=== PATIENT | female | born 1975 | race Caucasian/White ===

== ENCOUNTER 2018-05-04 14:49 | Emergency (ER) | payer BC ==
[2018-05-04] MEDS ORDERED: HYDROCODONE/APAP 5/325 MG TAB ONE ×2 (15:27→22:14)
[2018-05-04 15:52] LABS: Absolute Monocytes 0.7 K/uL (0.1-1.3); Basophils % 0.3 % (0-1.3); Eosinophils % 0.1 % (0-4.4); Hematocrit 34.7 % (36.0-45.0); Lymphocytes % 6.4 % (15.3-44.8); MCH 27.8 pg (27.0-35.0); MCV 86.4 fL (80-100); MPV 8.5 fL (7.6-11.3); Monocytes % 4.5 % (3.3-12.3); RBC Red Blood Cell Count 4.02 M/uL (3.86-4.86)
--- NOTE | 2018-05-04 15:53 | RAD REPORT ---
EXAM DESCRIPTION: RAD - Foot Right 3 View - 05/04/2018 3:37 pm CLINICAL HISTORY: Chronic wound, foot pain, pain along the lateral and plantar aspect fifth MTP join t region COMPARISON: Right foot November 2017 FINDINGS: No fracture, dislocation or periosteal reaction. No acute or destructive bone process. Sof t tissue swelling is present along the plantar and lateral margins of the foot near the fifth MTP maya nt. No air or foreign body in the soft tissues. IMPRESSION: Soft tissue wound in the region of the fifth MTP joint. No air or foreign body. No bone destructive process to suspect osteomyelitis. Osteomyelitis can exist prior to bone destructi on.
[2018-05-04 16:19] LABS: Blood Morphology Comment NOT SEEN (NOT SEEN); Platelet Estimate ADEQ; Urine White Blood Cell Casts OK
[2018-05-04 16:23] LABS: ALT/SGPT 15 U/L (12-78); AST/SGOT 15 U/L (15-37); Albumin 2.6 g/dL (3.4-5.0); Alkaline Phosphatase 80 U/L (45-117); BUN Blood Urea Nitrogen 23 mg/dL (7-18); Bilirubin Direct < 0.1 mg/dL (0-0.2); Bilirubin Total 0.4 mg/dL (0.2-1.0); Glucose Level 125 mg/dL (74-106); Potassium 4.3 mmol/L (3.5-5.1); Protein, Total 7.8 g/dL (6.4-8.2); Sodium Level 138 mmol/L (136-145)
[2018-05-04 16:37] LABS: Bicarbonate 12 mmol/L (21-32)
[2018-05-04] MEDS ORDERED: NA CHLORIDE 0.9% 1,000 ML ONE ×3 (16:57→18:08)
[2018-05-04 17:26] LABS: Urine Blood NEGATIVE (NEG); Urine Glucose 2+ (NEG); Urine Protein 1+ (NEG)
[2018-05-04 20:11] LABS: Potassium 3.8 mmol/L (3.5-5.1)
[2018-05-04 21:41] LABS: Potassium 4.4 mmol/L (3.5-5.1)
--- NOTE | 2018-05-04 22:26 | EDPHYS ---
Physician Documentation [facility] Name: June Hebert Age: 43 yrs Sex: Female : 1975 Arrival Date: 05/04/2018 Time: 14:52 Bed 19 Private MD: Guillermo Jordan ED Physician Shadi Spencer HPI: 05/04 16:00 This 43 yrs old Female presents to ER via Ambulatory with complaints of Feet pm1 Swelling. 16:00 Patient with plantar wound to right foot for 1 year and wound to lateral aspect of pm1 right foot since November 2017. Patient sees Dr. Velarde for wound care management. For the past two days patient has noted some increased swelling and pain to right foot. No fevers or discharge. Patient has appointment to follow up with Dr. Velarde next . 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 aj Historical: - Allergies: 15:01 No Known Allergies; aj - Home Meds: 15:01 fluoxetine 40 mg Oral cap 1 cap once daily [Active]; ramipril 10 mg Oral cap 1 cap once aj daily [Active]; metformin 1,000 mg Oral TG24 2 tabs once daily [Active]; Microgestin FE /20 (28) 1 mg-20 mcg (21)/75 mg (7) oral tab 1 tab once daily [Active]; Invokana 100 mg oral tab 1 tab once daily [Active]; Trulicity 1.5 mg/0.5 mL subcutaneous pnij 0.5 mL once wkly [Active]; atorvastatin 10 mg oral tab 1 tab once daily [Active]; - PMHx: 15:01 Diabetes - NIDDM; Hyperlipidemia; aj - PSHx: 15:01 Cholecystectomy; aj - Immunization history:: Adult Immunizations up to date. - Social history:: Smoking status: Patient/guardian denies using tobacco. - Ebola Screening: : Patient negative for fever greater than or equal to 101.5 degrees Fahrenheit, and additional compatible Ebola Virus Disease symptoms Patient denies exposure to infectious person Patient denies travel to an Ebola-affected area in the 21 days before illness onset No symptoms or risks identified at this time. ROS: 16:00 Constitutional: Negative for fever, chills, and weight loss, Eyes: Negative for injury, pm1 pain, redness, and discharge, ENT: Negative for injury, pain, and discharge, Neck: Negative for injury, pain, and swelling, Cardiovascular: Negative for chest pain, palpitations, and edema, Respiratory: Negative for shortness of breath, cough, wheezing, and pleuritic chest pain, Abdomen/GI: Negative for abdominal pain, nausea, vomiting, diarrhea, and constipation, Back: Negative for injury and pain, : Negative for injury, bleeding, discharge, and swelling. 16:00 Neuro: Negative for headache, weakness, numbness, tingling, and seizure. 16:00 MS/extremity: Positive for pain, of the right foot, Negative for decreased range of motion, deformity, paresthesias, tingling. 16:00 Skin: Positive for ulceration, of the ball of right foot and lateral side of right foot. Exam: 16:00 Constitutional: This is a well developed, well nourished patient who is awake, alert, pm1 and in no acute distress. Head/Face: Normocephalic, atraumatic. Eyes: Pupils equal round and reactive to light, extra-ocular motions intact. Lids and lashes normal. Conjunctiva and sclera are non-icteric and not injected. Cornea within normal limits. Periorbital areas with no swelling, redness, or edema. ENT: Nares patent. No nasal discharge, no septal abnormalities noted. Tympanic membranes are normal and external auditory canals are clear. Oropharynx with no redness, swelling, or masses, exudates, or evidence of obstruction, uvula midline. Mucous membranes moist. Neck: Trachea midline, no thyromegaly or masses palpated, and no cervical lymphadenopathy. Supple, full range of motion without nuchal rigidity, or vertebral point tenderness. No Meningismus. Chest/axilla: Normal chest wall appearance and motion. Nontender with no deformity. No lesions are appreciated. Cardiovascular: Regular rate and rhythm with a normal S1 and S2. No gallops, murmurs, or rubs. No pulse deficits. Respiratory: Lungs have equal breath sounds bilaterally, clear to auscultation and percussion. No rales, rhonchi or wheezes noted. No increased work of breathing, no retractions or nasal flaring. Abdomen/GI: Soft, non-tender, with normal bowel sounds. No distension or tympany. No guarding or rebound. No evidence of tenderness throughout. Back: No spinal tenderness. No costovertebral tenderness. Full range of motion. 16:00 Skin: Appearance: normal except for affected area, lesion(s), noted, and can be described as ulceration to ball of right foot and lateral aspect of right foot. Instep of right foot with mild redness present . 16:00 Neuro: Orientation: is normal, Motor: moves all fours, Sensation: is normal, no obvious gross deficits. Vital Signs: 15:01 BP 132 / 76; Pulse 104; Resp 20; Temp 98.8; Pulse Ox 99% on R/A; Weight 84.82 kg; aj Height 5 ft. 3 in. (160.02 cm); 16:43 BP 113 / 62; Pulse 105; Resp 16; Pulse Ox 99% on R/A; Pain 3/10; ch 18:04 BP 108 / 56; Pulse 103; Resp 14; Pulse Ox 99% on R/A; Pain 3/10; ch 19:20 BP 114 / 58; Pulse 109; Resp 18 S; Pulse Ox 100% on R/A; jd3 20:19 BP 125 / 74; Pulse 111; Resp 17 S; Pulse Ox 100% on R/A; Pain 3/10; jd3 22:04 BP 113 / 74; Pulse 112; Resp 16 S; Pulse Ox 100% on R/A; jd3 15:01 Body Mass Index 33.13 (84.82 kg, 160.02 cm) aj MDM: 15:04 Patient medically screened. pm1 16:40 ED course: Critical lab report received[place] Was pm1 not drinking much water this weekend. Patient likely dehydrated. Will give patient NS infusion and recheck BMP. 16:40 ED course: Patient currently eating a heavy protein, meat diet with her . pm1 22:22 Data reviewed: vital signs. pm1 22:22 Counseling: I had a detailed discussion with the patient and/or guardian regarding: the pm1 historical points, exam findings, and any diagnostic results supporting the discharge/admit diagnosis, lab results, radiology results, the need for further work-up and treatment in the hospital. 22:22 Refusal of service: The patient/guardian displays adequate decision making capability pm1 and despite a detailed discussion of alternatives, benefits, risks, and consequences refuses: Admission to the hospital for further work-up and treatment, Patient does not feel bad and would like to be discharged home with antibiotics for her foot. Patient with follow up appointments with her work for physical on Monday and appointment with Dr. Velarde for wound reevaluation. Will discharge the patient home with antibiotics. 05/04 15:19 Order name: Basic Metabolic Panel; Complete Time: 16:39 pm1 05/04 15:19 Order name: CBC with Diff; Complete Time: 16:31 pm1 05/04 15:19 Order name: Hepatic Function; Complete Time: 16:39 pm1 05/04 15:56 Order name: Urine Dipstick--Ancillary (enter results); Complete Time: 17:27 ag 05/04 15:56 Order name: Urine --Ancillary (enter results); Complete Time: 17:27 ag 05/04 15:58 Order name: CBC Smear Scan; Complete Time: 16:31 EDMS 05/04 15:19 Order name: Foot Right 3 View XRAY; Complete Time: 15:56 pm1 05/04 18:41 Order name: BMP; Complete Time: 20:16 pm1 05/04 20:37 Order name: BMP; Complete Time: 21:52 pm1 05/04 15:19 Order name: Urine Test (obtain specimen); Complete Time: 15:54 pm1 05/04 15:19 Order name: IV Saline Lock; Complete Time: 15:31 pm1 05/04 15:19 Order name: Labs collected and sent; Complete Time: 15:54 pm1 05/04 15:19 Order name: Urine Dipstick-Ancillary (obtain specimen); Complete Time: 15:54 pm1 Administered Medications: 15:31 Drug: [place] 5 mg-325 mg 1 tabs Route: PO; ch 16:45 Follow up: Response: No adverse reaction; Marked relief of symptoms ch 16:58 Drug: NS 0.9% 1000 ml Route: IV; Rate: 1000 ml; Site: left forearm; ch 18:11 Follow up: IV Status: Completed infusion; IV Intake: 1000ml ch 19:36 Follow up: Response: No adverse reaction; IV Status: Completed infusion; IV Intake: jd3 1000ml 16:58 Drug: NS 0.9% 1000 ml Route: IV; Rate: 1000 ml; Site: left forearm; ch 18:11 Follow up: IV Status: Completed infusion ch 19:36 Follow up: Response: No adverse reaction; IV Status: Completed infusion; IV Intake: jd3 1000ml 18:10 Drug: NS 0.9% 1000 ml Route: IV; Rate: 1000 ml; Site: left forearm; 19:37 Follow up: Response: No adverse reaction; IV Status: Completed infusion; IV Intake: jd3 1000ml 22:28 Drug: [place] 5 mg-325 mg 1 tabs Route: PO; jd3 22:42 Follow up: Response: Medication administered at discharge. jd3 22:41 Drug: Bactrim (160 mg-800 mg (DS) 1 tablet Route: PO; jd3 22:42 Follow up: Response: Medication administered at discharge. jd3 22:42 Drug: Doxycycline 100 mg Route: PO; jd3 22:43 Follow up: Response: Medication administered at discharge. jd3 Disposition: 23:36 Co-signature as Attending Physician, Shadi Spencer MD I agree with the assessment and kdr plan of care. Disposition: 05/04/18 22:26 Discharged to Home. Impression: Cellulitis of right lower limb - right foot, Acidosis. - Condition is Stable. - Discharge Instructions: Cellulitis, Metabolic Acidosis. - Prescriptions for Tylenol- Codeine #3 300-30 mg Oral Tablet - take 2 tablets by ORAL route every 6 hours As needed; 20 tablet. Doxycycline Hyclate 100 mg Oral Tablet - take 1 tablet by ORAL route every 12 hours; 20 tablet. Bactrim DS 800- 160 mg Oral Tablet - take 1 tablet by ORAL route every 12 hours for 10 days; 20 tablet. - Medication Reconciliation Form, Thank You Letter, Antibiotic Education, Prescription Opioid Use form. - Follow up: Emergency Department; When: As needed; Reason: Worsening of condition. Follow up: Private Physician; When: 2 - 3 days; Reason: Recheck today's complaints, Continuance of care, Re-evaluation by your physician. - Problem is new. - Symptoms have improved. Signatures: Dispatcher [employer] EDMS Josy Santana RN RN ch Myers, Amanda, RN RN aj Rittger, Kevin, MD MD kdr Marinas, Patrick, SPOT WORKER SPOT WORKER pm1 Chapincito Farrell RN RN jd3 Corrections: (The following items were deleted from the chart) 22:46 22:26 05/04/2018 22:26 Discharged to Home. Impression: Cellulitis of right lower limb - jd3 right foot; Acidosis. Condition is Stable. Forms are Medication Reconciliation Form, Thank You Letter, Antibiotic Education, Prescription Opioid Use. Follow up: Emergency Department; When: As needed; Reason: Worsening of condition. Follow up: Private Physician; When: 2 - 3 days; Reason: Recheck today's complaints, Continuance of care, Re-evaluation by your physician. Problem is new. Symptoms have improved. pm1
--- NOTE | 2018-05-04 22:26 | ER ---
Nurse's Notes [facility] Name: June Hebert Age: 43 yrs Sex: Female : 1975 Arrival Date: 05/04/2018 Time: 14:52 Bed 19 Private MD: Guillermo Jordan Diagnosis: Cellulitis of right lower limb-right foot;Acidosis Presentation: 05/04 14:58 Presenting complaint: Patient states: Wound to bottom and side of right foot since aj November. Reports swelling increased recently. Transition of care: patient was not received from another setting of care. Onset of symptoms was May 02, 2018. Risk Assessment: Do you want to hurt yourself or someone else? Patient reports no desire to harm self or others. Initial Sepsis Screen: Does the patient meet any 2 criteria? No. Patient's initial sepsis screen is negative. Does the patient have a suspected source of infection? No. Patient's initial sepsis screen is negative. Care prior to arrival: None. 14:58 Method Of Arrival: Ambulatory aj 14:58 Acuity: JACOB 3 aj Triage Assessment: 15:01 General: Appears in no apparent distress. comfortable, Behavior is calm, cooperative, aj appropriate for age. Pain: Complains of pain in right foot. Neuro: Level of Consciousness is awake, alert, obeys commands, Oriented to person, place, time, situation, Appropriate for age. Respiratory: Airway is patent Respiratory effort is even, unlabored, Respiratory pattern is regular, symmetrical. Derm: Skin is intact, is healthy with good turgor, Skin is pink, warm \T\ dry. normal. Derm: Wound noted lateral side of right foot and ball of right foot. 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 Historical: - Allergies: 15:01 No Known Allergies; aj - Home Meds: 15:01 fluoxetine 40 mg Oral cap 1 cap once daily [Active]; ramipril 10 mg Oral cap 1 cap once aj daily [Active]; metformin 1,000 mg Oral TG24 2 tabs once daily [Active]; Microgestin FE 11/18 (28) 1 mg-20 mcg (21)/75 mg (7) oral tab 1 tab once daily [Active]; Invokana 100 mg oral tab 1 tab once daily [Active]; Trulicity 1.5 mg/0.5 mL subcutaneous pnij 0.5 mL once wkly [Active]; atorvastatin 10 mg oral tab 1 tab once daily [Active]; - PMHx: 15:01 Diabetes - NIDDM; Hyperlipidemia; aj - PSHx: 15:01 Cholecystectomy; aj - Immunization history:: Adult Immunizations up to date. - Social history:: Smoking status: Patient/guardian denies using tobacco. - Ebola Screening: : Patient negative for fever greater than or equal to 101.5 degrees Fahrenheit, and additional compatible Ebola Virus Disease symptoms Patient denies exposure to infectious person Patient denies travel to an Ebola-affected area in the 21 days before illness onset No symptoms or risks identified at this time. Screenin:19 Abuse screen: Denies threats or abuse. Denies injuries from another. Nutritional ch screening: No deficits noted. Tuberculosis screening: No symptoms or risk factors identified. Fall Risk None identified. Assessment: 15:19 General: Appears in no apparent distress. uncomfortable, Behavior is calm, cooperative, ch appropriate for age. Pain: Complains of pain in instep of right foot and arch of right foot Pain currently is 8 out of 10 on a pain scale. Pain began suddenly. Neuro: No deficits noted. Cardiovascular:. Cardiovascular: Capillary refill < 3 seconds in bilateral fingers toes. Cardiovascular: Clubbing of nail beds is present Pulses are all present. Respiratory: Airway is patent Respiratory effort is even, unlabored. GI: No signs and/or symptoms were reported involving the gastrointestinal system. Derm: Skin is pink, warm \T\ dry. Decubitus located on right ball of foot, second one is on lateral side of foot. lateral side of foot is dime sized, ball of foot is quarter sized approximately 2.6 cm to 7.5 cm has erythematous edges has macerated edges bed has granulation present is draining none noted. Musculoskeletal: Capillary refill < 3 seconds, in bilateral fingers. toes. Range of motion: intact in all extremities, Swelling present in right foot Reports pain in right foot. 15:53 Reassessment: Patient appears in no apparent distress at this time. Patient and/or ch family updated on plan of care and expected duration. Pain level reassessed. Patient is alert, oriented x 3, equal unlabored respirations, skin warm/dry/pink. 16:37 Reassessment: Skip Spencer NP notified of critical lab, bicarb 12. ss 16:43 Reassessment: Patient appears in no apparent distress at this time. Patient and/or ch family updated on plan of care and expected duration. Pain level reassessed. Patient is alert, oriented x 3, equal unlabored respirations, skin warm/dry/pink. [facility] discussing plan of care with pt now. 18:04 Reassessment: Patient appears in no apparent distress at this time. Patient and/or ch family updated on plan of care and expected duration. Pain level reassessed. Patient is alert, oriented x 3, equal unlabored respirations, skin warm/dry/pink. Patient states feeling better. Patient states symptoms have improved. 19:16 Reassessment: Patient appears in no apparent distress at this time. No changes from jd3 previously documented assessment. Patient and/or family updated on plan of care and expected duration. Pain level reassessed. Patient is alert, oriented x 3, equal unlabored respirations, skin warm/dry/pink. General: Appears in no apparent distress. uncomfortable, Behavior is calm, cooperative, appropriate for age. Neuro: No deficits noted. Cardiovascular: Capillary refill < 3 seconds in bilateral fingers toes Clubbing of nail beds is present. Respiratory: Airway is patent Respiratory effort is even, unlabored, Respiratory pattern is regular, symmetrical, Breath sounds are clear bilaterally. GI: No signs and/or symptoms were reported involving the gastrointestinal system. Derm: Skin is pink, warm \T\ dry. Decubitus located on right ball of foot approximately 2.6 cm to 7.5 cm has erythematous edges has macerated edges bed has granulation present is draining none noted. Musculoskeletal: Capillary refill Range of motion: intact in all extremities, Swelling present in right foot Reports pain in right foot. 19:20 Reassessment:. ch 20:19 Reassessment: Patient appears in no apparent distress at this time. Patient and/or jd3 family updated on plan of care and expected duration. Pain level reassessed. Patient is alert, oriented x 3, equal unlabored respirations, skin warm/dry/pink. 22:04 Reassessment: Patient appears in no apparent distress at this time. Patient and/or jd3 family updated on plan of care and expected duration. Pain level reassessed. Patient is alert, oriented x 3, equal unlabored respirations, skin warm/dry/pink. 22:45 Reassessment: Patient appears in no apparent distress at this time. Patient and/or jd3 family updated on plan of care and expected duration. Pain level reassessed. Patient is alert, oriented x 3, equal unlabored respirations, skin warm/dry/pink. pt reported understanding of discharge instructions, even and steady gait upon discharge. Patient states feeling better. Vital Signs: 15:01 BP 132 / 76; Pulse 104; Resp 20; Temp 98.8; Pulse Ox 99% on R/A; Weight 84.82 kg; aj Height 5 ft. 3 in. (160.02 cm); 16:43 BP 113 / 62; Pulse 105; Resp 16; Pulse Ox 99% on R/A; Pain 3/10; ch 18:04 BP 108 / 56; Pulse 103; Resp 14; Pulse Ox 99% on R/A; Pain 3/10; ch 19:20 BP 114 / 58; Pulse 109; Resp 18 S; Pulse Ox 100% on R/A; jd3 20:19 BP 125 / 74; Pulse 111; Resp 17 S; Pulse Ox 100% on R/A; Pain 3/10; jd3 22:04 BP 113 / 74; Pulse 112; Resp 16 S; Pulse Ox 100% on R/A; jd3 15:01 Body Mass Index 33.13 (84.82 kg, 160.02 cm) ED Course: 14:52 Patient arrived in ED. mr 14:52 Guillermo Jordan MD is Private Physician. mr 14:59 Triage completed. aj 15:01 Arm band placed on left wrist. Patient placed in an exam room. aj 15:03 Skip Spencer NP is PHCP. pm1 15:04 Danilo Owens MD is Attending Physician. pm1 15:19 Josy Santana, TITO is Primary Nurse. ch 15:19 No apparent distress. Resting quietly. ch 15:19 Patient has correct armband on for positive identification. Bed in low position. Call light in reach. Side rails up X 1. Adult w/ patient. Warm blanket given. 15:19 No provider procedures requiring assistance completed. ch 15:31 Inserted saline lock: 20 gauge in left forearm, using aseptic technique. ch 15:34 X-ray completed. Portable x-ray completed in exam room. Patient tolerated procedure kp1 well. 15:36 Foot Right 3 View XRAY In Process Unspecified. EDMS 15:53 Initial lab(s) drawn, by me, sent to lab. Urine collected: clean catch specimen, clear. ch 16:43 equipment monitor phototypesetting on. Pulse ox on. ch 19:20 Report given to Merlin. ch 19:36 Chapincito Farrell RN is Primary Nurse. jd3 20:52 BMP Sent. jd3 22:08 Attending Physician role handed off by Danilo Owens MD kdr 22:08 Shadi Spencer MD is Attending Physician. kdr 22:44 IV discontinued, intact, bleeding controlled, No redness/swelling at site. Pressure jd3 dressing applied. Administered Medications: 15:31 Drug: [place] 5 mg-325 mg 1 tabs Route: PO; ch 16:45 Follow up: Response: No adverse reaction; Marked relief of symptoms ch 16:58 Drug: NS 0.9% 1000 ml Route: IV; Rate: 1000 ml; Site: left forearm; ch 18:11 Follow up: IV Status: Completed infusion; IV Intake: 1000ml ch 19:36 Follow up: Response: No adverse reaction; IV Status: Completed infusion; IV Intake: jd3 1000ml 16:58 Drug: NS 0.9% 1000 ml Route: IV; Rate: 1000 ml; Site: left forearm; ch 18:11 Follow up: IV Status: Completed infusion ch 19:36 Follow up: Response: No adverse reaction; IV Status: Completed infusion; IV Intake: jd3 1000ml 18:10 Drug: NS 0.9% 1000 ml Route: IV; Rate: 1000 ml; Site: left forearm; ch 19:37 Follow up: Response: No adverse reaction; IV Status: Completed infusion; IV Intake: jd3 1000ml 22:28 Drug: [place] 5 mg-325 mg 1 tabs Route: PO; jd3 22:42 Follow up: Response: Medication administered at discharge. jd3 22:41 Drug: Bactrim (160 mg-800 mg (DS) 1 tablet Route: PO; jd3 22:42 Follow up: Response: Medication administered at discharge. jd3 22:42 Drug: Doxycycline 100 mg Route: PO; jd3 22:43 Follow up: Response: Medication administered at discharge. jd3 Intake: 18:11 IV: 1000ml; Total: 1000ml. ch 19:36 IV: 1000ml; Total: 2000ml. jd3 19:36 IV: 1000ml; Total: 3000ml. jd3 19:37 IV: 1000ml; Total: 4000ml. jd3 Outcome: 22:26 Discharge ordered by . pm1 22:43 Discharged to home ambulatory, with family. jd3 22:43 Condition: stable 22:43 Discharge instructions given to patient, family, Instructed on discharge instructions, follow up and referral plans. medication usage, Demonstrated understanding of instructions, follow-up care, medications, Prescriptions given X 3. 22:46 Patient left the ED. jd3 Signatures: Dispatcher [employer] EDMS Josy Santnaa RN RN Lawanda Stallings RN Shadi Weir MD MD kdr Rivera, Maria mr Smirch, Shelby, RN RN Skip Fulton NP PARTS SPECIALIST pm1 Cait Kelly 1 Chapincito Farrell RN RN jd3 Corrections: (The following items were deleted from the chart) 18:11 18:04 BP 108 / 56; Pulse 88bpm; Resp 14bpm; Pulse Ox 99% RA; Pain 3/10; ch ch
[2018-05-04] MEDS ORDERED: DOXYCYCLINE 100 MG CAP PO ONE (22:36)
[2018-05-04] MEDS ORDERED: SMZ./TMP. 800/160 MG TABLET ONE (22:36)
[2018-05-04 22:50] VITALS: TEMP 98.8
[2018-05-04 22:54] VITALS: O2SAT 100
[2018-05-04 22:56] VITALS: BP 113/74
== END 2018-05-04 22:46 | disposition home or self-care (01) ==
LOC: ER 14:49
DX: L03.115 Cellulitis of right lower limb (principal); E87.2 Acidosis; E11.9 Type 2 diabetes mellitus without complications; E78.5 Hyperlipidemia, unspecified
CPT/HCPCS: 36415; 80048; 80076; 81003; 81025; 85025; 96360; 96361; 99284; J7030

== ENCOUNTER 2018-05-05 00:26 | Inpatient (IN) | payer BC ==
--- NOTE | 2018-05-05 00:51 | EDPHYS ---
Physician Documentation [facility] Name: June Hebert Age: 43 yrs Sex: Female : 1975 Arrival Date: 05/05/2018 Time: 00:26 Bed 17 Private MD: Guillermo Jordan ED Physician Shadi Spencer HPI: 05/05 02:00 This 43 yrs old Female presents to ER via Ambulatory with complaints of pm1 Shortness Of Breath. 02:00 The patient has shortness of breath at rest. Onset: The symptoms/episode began/occurred pm1 just prior to arrival. Duration: The symptoms are continuous. The patient's shortness of breath is aggravated by nothing, is alleviated by nothing. Associated signs and symptoms: Pertinent positives: nausea, Pertinent negatives: chest pain, fever, vomiting. Severity of symptoms: in the emergency department the symptoms are worse. The patient has been recently seen at the [facility] Emergency Department, yesterday, Patient came to the ER for evaluation of her chronic wound to her right foot. Patient did not want to stay in the hospital for her acidosis. It did not improve with fluid resuscitation. Patient felt fine and wanted to go home with a prescription for antibiotics for her foot since she came here for foot pain and swelling. Patient returned to the emergency department with complaints of shortness of breath with the impression that she is having an allergic reaction to the medications prescribed. 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 jd3 Historical: - Allergies: 00:36 No Known Allergies; bb - Home Meds: 00:36 atorvastatin 10 mg Oral tab 1 tab once daily [Active]; fluoxetine 40 mg Oral cap 1 cap bb once daily [Active]; Invokana 100 mg Oral tab 1 tab once daily [Active]; metformin 1,000 mg Oral TG24 2 tabs once daily [Active]; Microgestin FE 1/20 (28) 1 mg-20 mcg (21)/75 mg (7) Oral tab 1 tab once daily [Active]; ramipril 10 mg Oral cap 1 cap once daily [Active]; Trulicity 1.5 mg/0.5 mL subcutaneous pnij 0.5 mL once wkly [Active]; - PMHx: 00:36 Diabetes - NIDDM; Hyperlipidemia; bb - PSHx: 00:36 Cholecystectomy; bb - Immunization history:: Adult Immunizations up to date. - Social history:: Smoking status: . - Ebola Screening: : No symptoms or risks identified at this time. ROS: 02:00 Constitutional: Negative for fever, chills, and weight loss, Eyes: Negative for injury, pm1 pain, redness, and discharge, ENT: Negative for injury, pain, and discharge, Neck: Negative for injury, pain, and swelling, Cardiovascular: Negative for chest pain, palpitations, and edema. 02:00 Back: Negative for injury and pain, Skin: Negative for injury, rash, and discoloration, Neuro: Negative for headache, weakness, numbness, tingling, and seizure. 02:00 Respiratory: Positive for shortness of breath, Negative for cough, wheezing. 02:00 Abdomen/GI: Positive for abdominal pain, nausea, Negative for vomiting, diarrhea, constipation. 02:00 MS/extremity: Positive for pain, of the right foot, Negative for decreased range of motion, deformity. Exam: 02:00 Constitutional: This is a well developed, well nourished patient who is awake, alert, pm1 and in no acute distress. Head/Face: Normocephalic, atraumatic. Chest/axilla: Normal chest wall appearance and motion. Nontender with no deformity. No lesions are appreciated. Cardiovascular: Regular rate and rhythm with a normal S1 and S2. No gallops, murmurs, or rubs. No pulse deficits. Respiratory: Lungs have equal breath sounds bilaterally, clear to auscultation and percussion. No rales, rhonchi or wheezes noted. No increased work of breathing, no retractions or nasal flaring. Abdomen/GI: Soft, non-tender, with normal bowel sounds. No distension or tympany. No guarding or rebound. No evidence of tenderness throughout. Back: No spinal tenderness. No costovertebral tenderness. Full range of motion. 02:00 Skin: lesion(s), located on the right foot, right plantar foot ulcer and lateral aspect of right foot ulcer without discharge or erythema. Mild erythema present to arch of right foot . 02:00 Neuro: Orientation: is normal, Motor: moves all fours, Sensation: no obvious gross deficits. Vital Signs: 00:36 BP 157 / 73; Pulse 126; Resp 28; Temp 98.7(A); Pulse Ox 100% on R/A; Weight 84.37 kg bb (R); Height 5 ft. 3 in. (160.02 cm) (R); Pain 0/10; 02:15 BP 149 / 81; Pulse 117; Resp 28 S; Pulse Ox 99% on R/A; Pain 0/10; jd3 00:36 Body Mass Index 32.95 (84.37 kg, 160.02 cm) bb MDM: 00:48 Patient medically screened. pm1 00:49 Data reviewed: vital signs. Data interpreted: Pulse oximetry: on room air is 100 %. pm1 Interpretation: normal. Counseling: I had a detailed discussion with the patient and/or guardian regarding: the historical points, exam findings, and any diagnostic results supporting the discharge/admit diagnosis, the need for further work-up and treatment in the hospital. 05/05 00:52 Order name: ABG; Complete Time: 01:58 pm1 05/05 00:59 Order name: Ketone, Serum; Complete Time: 01:58 pm1 05/05 00:59 Order name: CPK; Complete Time: 01:58 pm1 05/05 00:59 Order name: Lactate; Complete Time: 01:58 pm1 05/05 01:44 Order name: CBC with Automated Diff EDMS 05/05 01:44 Order name: Comprehensive Metabolic Panel EDMS 05/05 00:52 Order name: IV Saline Lock; Complete Time: 00:53 pm1 05/05 01:44 Order name: Lipase EDMS 05/05 01:47 Order name: NPO; Complete Time: 01:49 EDMS Administered Medications: No medications were administered Disposition: 03:48 Co-signature as Attending Physician, Shadi Spencer MD I agree with the assessment and kdr plan of care. Disposition: 05/05/18 00:50 Hospitalization ordered by Kishan Stratton for Inpatient Admission. Preliminary diagnosis are Acidosis - metabolic acidosis with respiratory compensation, Cellulitis of right lower limb. - Bed requested for Telemetry/MedSurg (Inpatient). - Status is Inpatient Admission. jd3 - Condition is Fair. - Problem is new. - Symptoms have improved. UTI on Admission? No Signatures: Dispatcher [employer] EDIN Keisha Nam RN RN mw Rittger, Kevin, MD MD [facility] Babs Renee RN RN Skip Gamez, MALINA GRAINING PRESS OPERATOR pm1 Chapincito Farrell RN RN jd3 Corrections: (The following items were deleted from the chart) 00:50 Hospitalization Ordered by Kishan Stratton MD for Inpatient Admission. Preliminary mw diagnosis is Acidosis; Cellulitis of right lower limb. Bed requested for Telemetry/MedSurg (Inpatient). Status is Inpatient Admission. Condition is Fair. Problem is new. Symptoms have improved. UTI on Admission? No. pm1 02:30 01:34 05/05/2018 00:50 Hospitalization Ordered by Kishan Stratton MD for Inpatient pm1 Admission. Preliminary diagnosis is Acidosis; Cellulitis of right lower limb. Bed requested for Telemetry/MedSurg (Inpatient). Status is Inpatient Admission. Condition is Fair. Problem is new. Symptoms have improved. UTI on Admission? No. mw :34 02:30 05/05/2018 00:50 Hospitalization Ordered by Kishan Stratton MD for Inpatient jd3 Admission. Preliminary diagnosis is Acidosis - metabolic acidosis with respiratory compensation; Cellulitis of right lower limb. Bed requested for Telemetry/MedSurg (Inpatient). Status is Inpatient Admission. Condition is Fair. Problem is new. Symptoms have improved. UTI on Admission? No. pm1
--- NOTE | 2018-05-05 00:51 | ER ---
Nurse's Notes [facility] Name: June Hebert Age: 43 yrs Sex: Female : 1975 Arrival Date: 05/05/2018 Time: 00:26 Bed 17 Private MD: Guillermo Jordan Diagnosis: Acidosis-metabolic acidosis with respiratory compensation;Cellulitis of right lower limb Presentation: 05/05 00:34 Presenting complaint: Patient states: she was discharged from here earlier and when she bb got home she started having SOB. Transition of care: patient was not received from another setting of care. Onset of symptoms was May 05, 2018. Risk Assessment: Do you want to hurt yourself or someone else? Patient reports no desire to harm self or others. Initial Sepsis Screen: Does the patient meet any 2 criteria? No. Patient's initial sepsis screen is negative. Does the patient have a suspected source of infection? No. Patient's initial sepsis screen is negative. Care prior to arrival: None. 00:34 Method Of Arrival: Ambulatory bb 00:34 Acuity: JACOB 3 bb Triage Assessment: 01:12 Respiratory: Onset: The symptoms/episode began/occurred just prior to arrival, the jd3 patient has moderate shortness of breath. 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 jd3 Historical: - Allergies: 00:36 No Known Allergies; bb - Home Meds: 00:36 atorvastatin 10 mg Oral tab 1 tab once daily [Active]; fluoxetine 40 mg Oral cap 1 cap bb once daily [Active]; Invokana 100 mg Oral tab 1 tab once daily [Active]; metformin 1,000 mg Oral TG24 2 tabs once daily [Active]; Microgestin FE /20 (28) 1 mg-20 mcg (21)/75 mg (7) Oral tab 1 tab once daily [Active]; ramipril 10 mg Oral cap 1 cap once daily [Active]; Trulicity 1.5 mg/0.5 mL subcutaneous pnij 0.5 mL once wkly [Active]; - PMHx: 00:36 Diabetes - NIDDM; Hyperlipidemia; bb - PSHx: 00:36 Cholecystectomy; bb - Immunization history:: Adult Immunizations up to date. - Social history:: Smoking status: . - Ebola Screening: : No symptoms or risks identified at this time. Screenin:11 Abuse screen: Denies threats or abuse. Nutritional screening: No deficits noted. jd3 Tuberculosis screening: No symptoms or risk factors identified. Fall Risk Ambulatory Aid- None/Bed Rest/Nurse Assist (0 pts). Gait- Normal/Bed Rest/Wheelchair (0 pts) Mental Status- Oriented to own ability (0 pts). Total Nice Fall Scale indicates No Risk (0-24 pts). Assessment: 00:35 General: Appears uncomfortable, Behavior is cooperative, appropriate for age, anxious. jd3 Pain: Denies pain. Neuro: Level of Consciousness is awake, alert, obeys commands, Oriented to person, place, time, situation. Cardiovascular: Heart tones S1 S2 present Capillary refill < 3 seconds Patient's skin is warm and dry. Respiratory: Airway is patent Respiratory effort is even, Respiratory pattern is tachypnea Breath sounds are clear bilaterally. GI: Abdomen is round Bowel sounds present X 4 quads. Abd is soft and non tender X 4 quads. Reports nausea, vomiting. : No signs and/or symptoms were reported regarding the genitourinary system. EENT: No signs and/or symptoms were reported regarding the EENT system. Derm: Skin is intact, Skin is dry, Skin is normal, Skin temperature is warm. Musculoskeletal: Circulation, motion, and sensation intact. Range of motion: intact in all extremities. 01:30 Reassessment: Patient appears in no apparent distress at this time. Patient and/or jd3 family updated on plan of care and expected duration. Pain level reassessed. Patient is alert, oriented x 3, equal unlabored respirations, skin warm/dry/pink. tachypneic respirations noted. 02:30 Reassessment: Patient appears in no apparent distress at this time. Patient and/or jd3 family updated on plan of care and expected duration. Pain level reassessed. Patient is alert, oriented x 3, equal unlabored respirations, skin warm/dry/pink. tachypneic respirations noted. Vital Signs: 00:36 BP 157 / 73; Pulse 126; Resp 28; Temp 98.7(A); Pulse Ox 100% on R/A; Weight 84.37 kg bb (R); Height 5 ft. 3 in. (160.02 cm) (R); Pain 0/10; 02:15 BP 149 / 81; Pulse 117; Resp 28 S; Pulse Ox 99% on R/A; Pain 0/10; jd3 00:36 Body Mass Index 32.95 (84.37 kg, 160.02 cm) ED Course: 00:26 Patient arrived in ED. am2 00:26 Guillermo Jordan MD is Private Physician. am2 00:34 Chapincito Farrell, RN is Primary Nurse. jd3 00:35 Triage completed. bb 00:36 Arm band placed on Patient placed in an exam room, on a stretcher, on pulse oximetry. bb Family accompanied patient. 00:37 Shadi Spencer MD is Attending Physician. kdr 00:38 Skip Spencer NP is PHCP. pm1 00:45 Missed attempt(s): 22 gauge in right forearm. Bleeding controlled, band aid applied, jd3 catheter tip intact. 00:50 Kishan Stratton MD is Hospitalizing Provider. pm1 00:50 Inserted saline lock: 20 gauge in left antecubital area, using aseptic technique. Blood jd3 collected. 01:11 Patient has correct armband on for positive identification. Bed in low position. Call jd3 light in reach. Side rails up X 1. Adult w/ patient. 02:00 No provider procedures requiring assistance completed. Patient admitted, IV remains in jd3 place. Administered Medications: No medications were administered Outcome: 00:50 Decision to Hospitalize by Provider. pm1 02:00 Admitted to Med/surg accompanied by tech, via wheelchair, room 217, with chart, Report jd3 called to Shantell FRANCIS 02:00 Condition: stable 02:00 Instructed on the need for admit, Demonstrated understanding of instructions. 02:34 Patient left the ED. jd3 Signatures: Shadi Spencer MD MD [facility] Babs Renee RN RN bb Skip Spencer NP BLOOD COORDINATOR pm1 Lawanda Galindo am2 Chapincito Farrell, TITO RN jrosemary
[2018-05-05 01:06] LABS: Arterial Blood Carboxyhemoglob 0.8 % (0-1.5); Blood Gas Oxyhemoglobin 94.6 % (94-97); Blood O2 Saturation 96.6 % (92-98.5)
[2018-05-05] MEDS ORDERED: ONDANSETRON 4 MG/2 ML VIAL ONE (01:25)
[2018-05-05] MEDS ORDERED: ACETAMINOPHEN 500 MG TAB PO PRN (01:43)
[2018-05-05 01:51] LABS: Creatine Phosphokinase 56 U/L (26-192)
[2018-05-05] MEDS ORDERED: D5W 1,000 ML with NA BICARB 8.4% 50 MEQ IV SCH ×2 (02:00)
[2018-05-05 02:24] LABS: Absolute Monocytes 0.8 K/uL (0.1-1.3); Absolute Neutrophil 16.5 K/uL (1.8-8.0); Basophils % 0.1 % (0-1.3); Hematocrit 38.1 % (36.0-45.0); Lymphocytes % 5.4 % (15.3-44.8); MCH 28.6 pg (27.0-35.0); MCV 90.5 fL (80-100); MPV 9.8 fL (7.6-11.3); Monocytes % 4.6 % (3.3-12.3); RBC Red Blood Cell Count 4.21 M/uL (3.86-4.86)
[2018-05-05 02:39] LABS: Albumin 2.7 g/dL (3.4-5.0); Bilirubin Total 0.4 mg/dL (0.2-1.0); Protein, Total 7.3 g/dL (6.4-8.2)
[2018-05-05] MEDS ORDERED: D5W 1,000 ML IV ONE (02:51)
[2018-05-05] MEDS ORDERED: GLUCAGON 1 MG/VIAL IM PRN (03:44)
[2018-05-05 03:47] LABS: Blood Morphology Comment NOT SEEN (NOT SEEN); Platelet Estimate ADEQ; Urine White Blood Cell Casts OK
[2018-05-05] MEDS ORDERED: INSULIN -REGULAR HUMAN 50 UNIT/0.5 ML ML ONE (03:59)
[2018-05-05] MEDS ORDERED: NA CHLORIDE 0.9% 100 ML ONE (04:00)
[2018-05-05] MEDS: INSULIN -REGULAR HUMAN 100 UNIT in NA CHLORIDE 0.9% 100 ML IV SCH (04:10)
[2018-05-05 04:50] LABS: Potassium 4.7 mmol/L (3.5-5.1); Thyroid Stimulating Hormone 1.98 uIU/mL (0.36-3.74)
--- NOTE | 2018-05-05 07:51 | P.HP ---
Certification for Inpatient Patient admitted to: Inpatient With expected LOS: >2 Midnights Patient will require the following post-hospital care: None Practitioner: I am a practitioner with admitting privileges, knowledge of patient current condition, hospital course, and medical plan of care. Services: Services provided to patient in accordance with Admission requirements found in Title 42 Section 412.3 of the Code of Federal Regulations Patient History Date of Service: 05/05/18 Reason for admission: Respiratory distress History of Present Illness: Patient is a 43-year-old female came into the hospital earlier today and was found to have a metabolic acidosis. Etiology at that time was felt to be from a wound. Patient's bicarbonate was 7 and had gone up to 9 at the time of discharge. Patient has been doing along with her a very low carb diet. For the 1st time since being diagnose with diabetes her blood sugars have been very well controlled. She recently was out of town and got poison logan. She has not been eating well as she has not had much of an appetite. Her has encourage her to try to eat more because of her history of diabetes. Patient was not feeling well so she came into the hospital because she thought it may be related to her diabetic foot ulcer. She was given antibiotics at the time of discharge. However, she continued to worsen and came right back to the emergency room. I was notified regarding patient's labs and decision was to admit patient to the intensive care unit. Her anion gap metabolic acidosis was being caused by her ketones being elevated. In light of her history of diabetes decision was made to go ahead and treat her for diabetic ketoacidosis even though her sugars were only in the 150-170 levels. After starting her on D5 her blood sugars are starting to go up. Will go ahead and keep her on an insulin drip to correct her acidosis more quickly. Allergies No Known Allergies Allergy (Verified 11/30/17 10:33) Home Medications: Atorvastatin Calcium [Lipitor] 10 mg PO DAILY 12/06/17 Canagliflozin [Invokana] 100 mg PO DAILY 12/06/17 Dulaglutide [Trulicity] 1.5 mg SQ EVERY 7TH DAY 12/06/17 Fluoxetine HCl [Prozac] 40 mg PO DAILY 12/06/17 Metformin HCl [Glucophage] 1,000 mg PO BID 12/06/17 Norethindrone AC-Eth Estradiol [Microgestin 21 1-20 Tablet] 1 each PO DAILY 05/16 Ramipril [Altace] 10 mg PO DAILY 12/06/17 - Past Medical/Surgical History Diabetic: Yes -: NIDDM -: hyperlipidemia -: cholecystectomy - Family History Father Medical History: Heart disease, Diabetes Mother Medical History: Heart disease - Social History Smoking Status: Never smoker Alcohol use: Yes CD- Drugs: No Caffeine use: Yes Place of Residence: Home Review of Systems 10-point ROS is otherwise unremarkable Physical Examination - Vital Signs Temperature: 97.1 F Blood Pressure: 141/75 Pulse: 118 Respirations: 31 Pulse Ox (%): 100 - Physical Exam General: Alert, In no apparent distress, Oriented x3, Severe distress HEENT: Atraumatic, PERRLA, Mucous membr. moist/pink, EOMI, Sclerae nonicteric Neck: Supple, 2+ carotid pulse no bruit, No LAD, Without JVD or thyroid abnormality Respiratory: Clear to auscultation bilaterally, Normal air movement Cardiovascular: Regular rate/rhythm, Normal S1 S2, No murmurs Gastrointestinal: Normal bowel sounds, Soft and benign, Non-distended, No tenderness Musculoskeletal: No clubbing, No swelling, No tenderness Integumentary: No rashes Neurological: Normal gait, Normal speech, Normal strength at 5/5 x4 extr, Normal tone, Sensation intact, Cranial nerves 3-12 intact, Normal affect Lymphatics: No axilla or inguinal lymphadenopathy Assessment & Plan - Problems (Diagnosis) (1) Diabetic ketoacidosis Current Visit: Yes Status: Acute (2) Respiratory distress Current Visit: Yes Status: Acute (3) Hyperlipidemia Current Visit: No Status: Acute (4) Hypertension Current Visit: No Status: Acute - Plan Plan: 1. Aggressive hydration 2. IV bicarb and has been given x1 3. Will go ahead and start on D5 water with insulin drip 4. Monitor labs very closely 5. Check insulin level 6. Patient possibly is a type 1 diabetic and may need long-acting insulin at the time of discharge as she has gone into DKA. 7. Monitor renal function closely and electrolytes is well 8. GI and DVT prophylaxis Discharge Plan: Home Plan to discharge in: Greater than 2 days - Advance Directives Does patient have a Living Will: No Does patient have a Durable POA for Healthcare: No - Code Status/Comfort Care Code Status Assessed: Yes Code Status: Full Code Critical Care: No Time Spent Managing PTS Care (In Minutes): 50
[2018-05-05 08:19] LABS: Absolute Lymphocytes (CBC) 1.5 K/uL (0.7-4.9); Absolute Monocytes 1.6 K/uL (0.1-1.3); Absolute Neutrophil 19.2 K/uL (1.8-8.0); Basophils % 0.4 % (0-1.3); Hematocrit 39.5 % (36.0-45.0); Lymphocytes % 6.5 % (15.3-44.8); MCH 27.9 pg (27.0-35.0); MCV 90.5 fL (80-100); MPV 8.8 fL (7.6-11.3); Monocytes % 7.1 % (3.3-12.3); RBC Red Blood Cell Count 4.37 M/uL (3.86-4.86)
[2018-05-05 08:24] LABS: Arterial Blood Carboxyhemoglob 1.6 % (0-1.5); Blood Gas Oxyhemoglobin 96.1 % (94-97); Blood O2 Saturation 98.4 % (92-98.5)
[2018-05-05 08:36] LABS: Phosphorus 4.6 mg/dL (2.5-4.9); Potassium 4.4 mmol/L (3.5-5.1)
[2018-05-05] MEDS: ENOXAPARIN 40 MG/0.4 ML SQ SCH (08:44)
[2018-05-05] MEDS: D5W 1,000 ML IV SCH ×3 (08:45→17:52)
[2018-05-05 09:18] LABS: Blood Morphology Comment NOT SEEN (NOT SEEN); Platelet Estimate ADEQ
[2018-05-05] MEDS: PIPER/TAZO/NS 3.375gm 3.375 GM/100 ML BAG IVPB SCH ×2 (10:10→17:14)
[2018-05-05 12:52] LABS: BUN Blood Urea Nitrogen 21 mg/dL (7-18); Glucose Level 168 mg/dL (74-106); Magnesium 1.7 mg/dL (1.8-2.4); Phosphorus 1.5 mg/dL (2.5-4.9); Potassium 3.6 mmol/L (3.5-5.1); Sodium Level 144 mmol/L (136-145)
[2018-05-05 12:57] LABS: Bicarbonate 13 mmol/L (21-32)
[2018-05-05 17:15] LABS: BUN Blood Urea Nitrogen 21 mg/dL (7-18); Bicarbonate 19 mmol/L (21-32); Glucose Level 148 mg/dL (74-106); Magnesium 1.9 mg/dL (1.8-2.4); Phosphorus 1.5 mg/dL (2.5-4.9); Potassium 3.7 mmol/L (3.5-5.1); Sodium Level 140 mmol/L (136-145)
[2018-05-05] MEDS ORDERED: PNEUMOCOCCAL VACCINE 0.5 ML IMVAC ONE (17:34)
[2018-05-05] MEDS: POTASSIUM PHOS IN 0.9 % NACL 15 MMOL/250 ML BAG IV ONE (17:51)
[2018-05-05 20:25] LABS: BUN Blood Urea Nitrogen 19 mg/dL (7-18); Bicarbonate 17 mmol/L (21-32); Glucose Level 121 mg/dL (74-106); Magnesium 1.7 mg/dL (1.8-2.4); Phosphorus 2.4 mg/dL (2.5-4.9); Potassium 3.7 mmol/L (3.5-5.1); Sodium Level 141 mmol/L (136-145)
[2018-05-05] MEDS: ONDANSETRON 4 MG/2 ML VIAL IV PRN (23:50)
[2018-05-06] MEDS: PIPER/TAZO/NS 3.375gm 3.375 GM/100 ML BAG IVPB SCH ×3 (00:30→16:57)
[2018-05-06] MEDS ORDERED: MAGNESIUM SULFATE 1 gm IVPB 1 GM/100 ML BAG IV ONE (00:39)
[2018-05-06] MEDS ORDERED: POTASSIUM PHOS IN 0.9 % NACL 15 MMOL/250 ML BAG IV ONE ×3 (00:40→05:37)
[2018-05-06 00:58] LABS: Magnesium 1.7 mg/dL (1.8-2.4); Phosphorus 2.6 mg/dL (2.5-4.9); Potassium 3.4 mmol/L (3.5-5.1)
[2018-05-06] MEDS ORDERED: KCL 20 MEQ/100 mL IVPB 20 MEQ/100 ML BAG IV SCH (02:00)
[2018-05-06] MEDS: D5W 1,000 ML IV SCH ×5 (02:17→13:24)
[2018-05-06 03:06] VITALS: O2SAT 98
[2018-05-06 05:12] LABS: Magnesium 2.1 mg/dL (1.8-2.4); Phosphorus 1.7 mg/dL (2.5-4.9); Potassium 3.3 mmol/L (3.5-5.1)
[2018-05-06] MEDS: D50W 25 GM/50 ML SYRINGE IV PRN ×2 (05:37→07:27)
[2018-05-06] MEDS: ONDANSETRON 4 MG/2 ML VIAL IV PRN (05:38)
[2018-05-06] MEDS: INSULIN -REGULAR HUMAN 100 UNIT in NA CHLORIDE 0.9% 100 ML IV SCH (07:26)
[2018-05-06] MEDS: POTASSIUM PHOS 30 MM in NA CHLORIDE 0.9% 500 ML IV ONE ×2 (08:00→16:57)
[2018-05-06 08:31] LABS: Potassium 3.2 mmol/L (3.5-5.1)
[2018-05-06] MEDS: ENOXAPARIN 40 MG/0.4 ML SQ SCH (09:04)
[2018-05-06] MEDS: POTASSIUM PHOS IN 0.9 % NACL 15 MMOL/250 ML BAG IV ONE (09:42)
[2018-05-06] MEDS ORDERED: INSULIN DETEMIR 100 UNIT/1 ML INSULIN SQ ONE ×2 (10:00→21:00)
--- NOTE | 2018-05-06 11:25 | P.PN ---
Subjective Date of Service: 05/06/18 Chief Complaint: Respiratory distress Patient seen and examined at bedside with RN. Chart reviewed. Patient currently doing much better this morning. Has not been having any nausea or vomiting. Anion gap has been close x2. However patient still continues to have some acetone in her urine. Patient is currently on insulin drip. Advance her diet to clear liquid which tolerated well. Review of Systems General: As per HPI Physical Examination - Vital Signs Temperature: 97.4 F Blood Pressure: 122/69 Pulse: 90 Respirations: 19 Pulse Ox (%): 97 - Physical Exam General: Alert, In no apparent distress HEENT: Atraumatic, PERRLA, EOMI Neck: Supple, JVD not distended Respiratory: Clear to auscultation bilaterally, Normal air movement Cardiovascular: Regular rate/rhythm, Normal S1 S2 Gastrointestinal: Normal bowel sounds, No tenderness Musculoskeletal: No tenderness Integumentary: Other (Right leg wound in between great toe and 2nd toe) Neurological: Normal speech, Normal tone, Normal affect Lymphatics: No axilla or inguinal lymphadenopathy - Studies Medications List Reviewed: Yes Assessment & Plan - Problems (Diagnosis) (1) Diabetic ketoacidosis Current Visit: Yes Status: Acute Plan: DKA most likely 2.2 to Dehydration -Currenlty on Insulin ggt -Last Anion gap was 9. However pt still with Acetone in the urine. -Will continue the ggt for now and switch to long acting once acetone negative -Advance diet to diabetic -IV fluids d5w at 200ml.hr Qualifiers: Diabetes mellitus type: type 2 Diabetes mellitus complication detail: without coma Qualified Code(s): E11.10 - Type 2 diabetes mellitus with ketoacidosis without coma (2) Diabetic ulcer of right foot Current Visit: No Status: Chronic Plan: Chronic Ulcer of the right foot -Pt has been [facility] by [facility] Velarde [facility]. -Wound C/D/I -Apply santyl to the area -Will f.u outp with Dr Velarde once ready for discharge Qualifiers: Diabetic foot ulcer location: midfoot Diabetes mellitus type: type 2 Non- pressure ulcer stage: with muscle involvement without evidence of necrosis Qualified Code(s): E11.621 - Type 2 diabetes mellitus with foot ulcer; L97.415 - Non-pressure chronic ulcer of right heel and midfoot with muscle involvement without evidence of necrosis (3) Hyperlipidemia Current Visit: No Status: Chronic Qualifiers: Hyperlipidemia type: mixed hyperlipidemia Qualified Code(s): E78.2 - Mixed hyperlipidemia (4) Hypertension Current Visit: No Status: Chronic Qualifiers: Hypertension type: essential hypertension Qualified Code(s): I10 - Essential (primary) hypertension (5) Obesity (BMI 30.0-34.9) Current Visit: No Status: Chronic Plan: BMI 33.7 due to access calories Discharge Plan: Home Plan to discharge in: 48 Hours - Code Status/Comfort Care Code Status Assessed: Yes Critical Care: Yes
[2018-05-06] MEDS: COLLAGENASE 30 GM OINTMENT TOP SCH (11:31)
[2018-05-06 12:35] LABS: BUN Blood Urea Nitrogen 10 mg/dL (7-18); Bicarbonate 21 mmol/L (21-32); Glucose Level 174 mg/dL (74-106); Phosphorus 2.6 mg/dL (2.5-4.9); Potassium 3.4 mmol/L (3.5-5.1); Sodium Level 141 mmol/L (136-145)
[2018-05-06 16:32] LABS: BUN Blood Urea Nitrogen 10 mg/dL (7-18); Bicarbonate 21 mmol/L (21-32); Glucose Level 108 mg/dL (74-106); Phosphorus 1.9 mg/dL (2.5-4.9); Potassium 3.4 mmol/L (3.5-5.1); Sodium Level 143 mmol/L (136-145)
[2018-05-06] MEDS ORDERED: D50W 25 GM/50 ML SYRINGE IV PRN (17:08)
[2018-05-06] MEDS ORDERED: GLUCAGON 1 MG/VIAL IM PRN (17:08)
[2018-05-06 20:35] LABS: BUN Blood Urea Nitrogen 9 mg/dL (7-18); Bicarbonate 22 mmol/L (21-32); Glucose Level 196 mg/dL (74-106); Phosphorus 2.7 mg/dL (2.5-4.9); Potassium 3.7 mmol/L (3.5-5.1); Sodium Level 142 mmol/L (136-145)
[2018-05-07] MEDS: D5W 1,000 ML IV SCH
[2018-05-07] MEDS: PIPER/TAZO/NS 3.375gm 3.375 GM/100 ML BAG IVPB SCH ×2 (00:22→08:55)
[2018-05-07] MEDS ORDERED: D5W 1,000 ML IV SCH (01:00)
[2018-05-07 04:04] VITALS: BMI 33.7
[2018-05-07 05:29] LABS: Magnesium 1.9 mg/dL (1.8-2.4); Phosphorus 2.5 mg/dL (2.5-4.9); Potassium 3.4 mmol/L (3.5-5.1)
[2018-05-07] MEDS ORDERED: POTASSIUM 25 MEQ EFFERV TAB PO ONE (06:00)
[2018-05-07] MEDS: POTASS/SODIUM PHOSPHATE 1 PKT POWD.PACK PO SCH ×3 (06:12→08:00)
[2018-05-07] MEDS: INSULIN -REGULAR HUMAN 50 UNIT/0.5 ML ML SQ SCH ×2 (07:30→11:17)
[2018-05-07] MEDS: ENOXAPARIN 40 MG/0.4 ML SQ SCH (08:55)
[2018-05-07] MEDS: COLLAGENASE 30 GM OINTMENT TOP SCH (09:04)
[2018-05-07 09:16] LABS: Absolute Lymphocytes (CBC) 1.9 K/uL (0.7-4.9); Absolute Monocytes 0.8 K/uL (0.1-1.3); Absolute Neutrophil 9.6 K/uL (1.8-8.0); Basophils % 0.3 % (0-1.3); Eosinophils % 0.3 % (0-4.4); Hematocrit 32.5 % (36.0-45.0); Lymphocytes % 15.2 % (15.3-44.8); MCH 28.4 pg (27.0-35.0); MCV 83.8 fL (80-100); Monocytes % 6.6 % (3.3-12.3); RBC Red Blood Cell Count 3.87 M/uL (3.86-4.86)
--- NOTE | 2018-05-07 12:04 | DS ---
Date of Discharge: 05/07/2018 Admitting Diagnoses: 1.Diabetic ketoacidosis. 2.Respiratory distress. 3.Hyperlipidemia. 4.Hypertension. Discharge Diagnoses: 1.Diabetic ketoacidosis, resolved. 2.Diabetic foot ulcer, right. Has been seen by wound care as outpatient with Dr. Velarde. No acute s igns of infection. We will continue with Santyl. 3.Hyperlipidemia, mixed, on statin. 4.Essential hypertension, stable. 5.Obesity, body mass index 33.7. Hospital Course: The patient is a 43-year-old female, who has a primary care physician and endocrino logist. Usually has very well controlled diabetes with hemoglobin A1c of 6.8% on this admission, cam e in with metabolic acidosis secondary to DKA. She does have a wound ulcer on her foot, however, is well controlled. Has been following with wound care. No signs of infection. The patient was treate d with IV fluids and IV insulin until her gap closed. The patient was then switched over to sliding scale insulin and her anion gap closed. She was tolerating her diet. No further nausea or vomiting. The patient was then doing well. Her labs showed normal electrolytes. Potassium was slightly low, which was replaced. Her WBC count initially was elevated, however, came down to 12.3. The patient was then able to tolerate her diet. She denied any further respiratory distress. She was then clear ed for discharge. Medications: As per medication reconciliation list. Followup: Follow up with primary care physician in 2-3 days. Return to ER for worsening condition. Diet: Diabetic. Activity: As tolerated. Follow up with follow up rep as scheduled. Total time spent discharging the patient was 32 minutes. Physical Examination: General: Awake, alert, oriented, no acute distress. CV: S1, S2. No murmurs. Respiratory: Clear to auscultation bilaterally. No wheezing. Gastrointestinal: Abdomen is soft, nontender, nondistended. Positive bowel sounds. Extremities: No clubbing, cyanosis, edema. Neurologic: Nonfocal. SA/MODL Voice ID: [id number] Report ID: [id number]
[2018-05-07 12:17] LABS: Urine Appearance CLEAR; Urine Bilirubin NEGATIVE (NEG); Urine Blood TRACE (NEG); Urine Color YELLOW; Urine Glucose 3+ (NEG); Urine Protein 1+ (NEG)
[2018-05-07 12:19] LABS: Urine Microscopic Reflex ORDER UMIC
[2018-05-07 12:45] LABS: Urine Bacteria <20 /HPF (<20); Urine Culture Reflex Order REFLEXED; Urine RBC <5 /HPF (NONE SEEN)
[2018-05-07 13:07] VITALS: BP 144/87; TEMP 98.5
[2018-05-07] MEDS ORDERED: METFORMIN HCL 500 MG TAB PO SCH (17:00)
[2018-05-07] MEDS ORDERED: ATORVASTATIN 10 MG TAB PO SCH (21:00)
[2018-05-08] MEDS ORDERED: NORETHINDRONE AC ETH ESTRADIOL PO SCH (09:00)
[2018-05-08] MEDS ORDERED: FLUOXETINE 20 MG CAP PO SCH (09:00)
[2018-05-08] MEDS ORDERED: RAMIPRIL 5 MG CAP PO SCH (09:00)
[2018-05-08] MEDS ORDERED: CANAGLIFLOZIN 100 MG PO SCH (09:00)
[2018-05-14] MEDS ORDERED: HOME MED 1 EA UNK (Dulaglutide [Trulicity] 1.5 MG) SQ SCH (09:00)
== END 2018-05-07 12:05 | disposition home or self-care (01) | DRG 638 ==
LOC: ER 00:26 → ERHOLD 00:50 → 2ND 02:07 → 3RD-ICU 03:30
PROVIDERS: ADMIT Hospitalist; ATTEND Family Medicine
DX: E11.10 Type 2 diabetes mellitus with ketoacidosis without coma (principal); L97.415 Non-pressure chronic ulcer of right heel and midfoot with muscle involvement without evidence of necrosis; E11.621 Type 2 diabetes mellitus with foot ulcer; E78.2 Mixed hyperlipidemia; I10 Essential (primary) hypertension; E66.9 Obesity, unspecified; Z68.33 Body mass index [BMI] 33.0-33.9, adult; E86.0 Dehydration; Z79.84 Long term (current) use of oral hypoglycemic drugs
CPT/HCPCS: 36415; 80048; 80053; 81003; 81015; 82010; 82533; 82550; 82805; 82962; 83036; 83525; 83605; 83690; 83735; 84100; 84439; 84443; 85025; 87086; 87088; 90670; 99285; G0009; J1650; J2405; J2543; J3475; J3590

== ENCOUNTER 2018-05-11 14:56 | Inpatient (IN) | payer BC ==
[2018-05-11 15:54] LABS: Absolute Lymphocytes (CBC) 2.2 K/uL (0.7-4.9); Absolute Monocytes 1.1 K/uL (0.1-1.3); Absolute Neutrophil 7.6 K/uL (1.8-8.0); Basophils % 0.7 % (0-1.3); Eosinophils % 1.3 % (0-4.4); Hematocrit 32.8 % (36.0-45.0); Lymphocytes % 20.1 % (15.3-44.8); MCH 28.3 pg (27.0-35.0); MCV 84.5 fL (80-100); MPV 7.3 fL (7.6-11.3); Monocytes % 9.7 % (3.3-12.3); RBC Red Blood Cell Count 3.88 M/uL (3.86-4.86)
[2018-05-11 15:59] LABS: Protime INR 1.03
[2018-05-11 16:14] LABS: Albumin 2.2 g/dL (3.4-5.0); Bilirubin Direct 0.1 mg/dL (0-0.2); Bilirubin Total 0.2 mg/dL (0.2-1.0); Potassium 4.2 mmol/L (3.5-5.1); Protein, Total 7.9 g/dL (6.4-8.2)
--- NOTE | 2018-05-11 16:44 | RAD REPORT ---
EXAM DESCRIPTION: RAD - Foot Right 3 View - 05/11/2018 4:25 pm CLINICAL HISTORY: Right foot pain and swelling FINDINGS: An ulceration is present within the soft tissues adjacent to the MTP joint. No underlying bony destruction is visualized. A 3 millimeter lucency is present within the distal aspect of the fifth middle phalanx. This is uncha nged from November 2017. This is approximately 2 centimeters distal to the soft tissue ulceration. Th is could represent osteomyelitis but is nonspecific. If clinically indicated further evaluation with MRI could be obtained No fracture or dislocation is seen
--- NOTE | 2018-05-11 18:27 | EDPHYS ---
Physician Documentation [facility] Name: June Hebert Age: 43 yrs Sex: Female : 1975 Arrival Date: 05/11/2018 Time: 14:59 Bed 23 Private MD: Guillermo Jordan ED Physician Shadi Spencer HPI: 05/11 16:10 This 43 yrs old Female presents to ER via Ambulatory with complaints of Wound pm1 Check. 16:10 Patient presents to ED for recheck of: right foot wound. The affected area is on the pm1 ball of right foot, arch of right foot and dorsum of right foot. Previous treatment: Patient with debridement of wound at wound care yesterday. Progress: The patient reports wound is worse since last night. The patient has been recently seen by a physician: Dr. Velarde yesterday. Patient with wound to right ball of foot for about 1 year. Patient seen at wound care yesterday and had wound debridement. Last night at 2300 when she went to the restroom, patient felt drainage from her right foot. Noticed blisters to the arch of right foot this morning that have gotten worse throughout the day. 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 hj Historical: - Allergies: 15:00 No Known Allergies; sg - Home Meds: 15:14 atorvastatin 10 mg Oral tab 1 tab once daily [Active]; fluoxetine 40 mg Oral cap 1 cap tw2 once daily [Active]; Invokana 100 mg Oral tab 1 tab once daily [Active]; metformin 1,000 mg Oral TG24 2 tabs once daily [Active]; Microgestin FE / (28) 1 mg-20 mcg (21)/75 mg (7) Oral tab 1 tab once daily [Active]; ramipril 10 mg Oral cap 1 cap once daily [Active]; Trulicity 1.5 mg/0.5 mL subcutaneous pnij 0.5 mL once wkly [Active]; - PMHx: 15:00 Diabetes - NIDDM; Hyperlipidemia; sg - PSHx: 15:00 Cholecystectomy; sg - Immunization history:: Adult Immunizations up to date. - Social history:: Smoking status: Patient/guardian denies using tobacco. - Ebola Screening: : Patient negative for fever greater than or equal to 101.5 degrees Fahrenheit, and additional compatible Ebola Virus Disease symptoms Patient denies exposure to infectious person Patient denies travel to an Ebola-affected area in the 21 days before illness onset No symptoms or risks identified at this time. ROS: 16:10 Constitutional: Negative for fever, chills, and weight loss, Eyes: Negative for injury, pm1 pain, redness, and discharge, ENT: Negative for injury, pain, and discharge, Neck: Negative for injury, pain, and swelling, Cardiovascular: Negative for chest pain, palpitations, and edema, Respiratory: Negative for shortness of breath, cough, wheezing, and pleuritic chest pain, Abdomen/GI: Negative for abdominal pain, nausea, vomiting, diarrhea, and constipation, Back: Negative for injury and pain. 16:10 MS/extremity: Positive for swelling, Pain to right foot. 16:10 Skin: Positive for redness and swelling to the ball, arch, and dorsum of right foot. Positive for yellowish drainage from plantar wound. Exam: 16:10 Constitutional: This is a well developed, well nourished patient who is awake, alert, pm1 and in no acute distress. Head/Face: Normocephalic, atraumatic. Chest/axilla: Normal chest wall appearance and motion. Nontender with no deformity. No lesions are appreciated. Cardiovascular: Regular rate and rhythm with a normal S1 and S2. No gallops, murmurs, or rubs. Normal PMI, no JVD. No pulse deficits. Respiratory: Lungs have equal breath sounds bilaterally, clear to auscultation and percussion. No rales, rhonchi or wheezes noted. No increased work of breathing, no retractions or nasal flaring. Abdomen/GI: Soft, non-tender, with normal bowel sounds. No distension or tympany. No guarding or rebound. No evidence of tenderness throughout. Back: No spinal tenderness. No costovertebral tenderness. Full range of motion. 16:10 MS/ Extremity: Pulses equal, no cyanosis. Neurovascular intact. Full, normal range of motion. 16:10 Skin: Appearance: normal except for affected area, abscess, that is moderate sized, of the arch of right foot, with pointing, with surrounding cellulitis, that is moderate, Drainage from plantar wound at the ball of her right foot with palpation at the arch of her foot, cellulitis, on the dorsum of right foot and arch of right foot and ball of right foot. 16:10 Neuro: Orientation: is normal, Motor: moves all fours, Sensation: is normal, no obvious gross deficits. Vital Signs: 15:08 BP 125 / 70; Pulse 97; Resp 17; Pulse Ox 97% on R/A; Weight 84.37 kg; Height 5 ft. 3 hj in. (160.02 cm) (R); Pain 10/10; 15:46 BP 119 / 64; Pulse 89; Temp 98.7(O); Pulse Ox 98% on R/A; tw2 16:10 BP 119 / 65; Pulse 88; Resp 16; Pulse Ox 99% on R/A; mt 17:01 BP 125 / 69; Pulse 88; Resp 17; Pulse Ox 100% on R/A; tw2 17:39 BP 119 / 69; Pulse 104; Resp 16; Pulse Ox 99% on R/A; mt 18:25 BP 113 / 66; Pulse 100; Resp 17; Pulse Ox 99% on R/A; mt 20:59 BP 118 / 85; Pulse 82; Resp 16; Pulse Ox 100% ; tl3 15:08 Body Mass Index 32.95 (84.37 kg, 160.02 cm) hj MDM: 15:14 Patient medically screened. pm1 16:00 Physician consultation: Josiah Velarde MD was called at 16:00, Paged. Patient had talked to pm1 him earlier today and he told her that he planned to meet the patient in the ER and evaluate the patient prior to work up. 18:24 Physician consultation: Jsoiah Velarde MD was contacted at 18:05, regarding patient's pm1 condition, and will see patient tomorrow morning. would like admission per Dr. Reed Cristobal MD would like further tests performed, MRI, would like medications started, vancomycin and clindamycin, NPO at midnight. 20:30 ED course: Called Dr. Velarde and updated him on MRI result. pm1 21:07 Data reviewed: vital signs. Data interpreted: Pulse oximetry: on room air is 100 %. pm1 Interpretation: normal. 05/11 15:27 Order name: Basic Metabolic Panel; Complete Time: 16:16 pm1 05/11 15:27 Order name: Blood Culture Adult (2) pm1 05/11 15:27 Order name: C-Reactive Protein; Complete Time: 16:16 pm05/11 15:27 Order name: CBC with Diff; Complete Time: 16:10 pm05/11 15:27 Order name: Lactate; Complete Time: 16:17 pm05/11 15:27 Order name: LFT's; Complete Time: 16:16 pm05/11 15:27 Order name: Lipase; Complete Time: 16:16 pm05/11 15:27 Order name: Procalcitonin; Complete Time: 17:30 pm05/11 15:27 Order name: Protime (+inr); Complete Time: 16:10 pm05/11 15:27 Order name: Ptt, Activated; Complete Time: 16:10 pm05/11 15:27 Order name: Sed Rate; Complete Time: 16:10 pm05/11 15:29 Order name: Wound Culture 05/11 16:14 Order name: Foot Right 3 View XRAY; Complete Time: 20:20 pm05/11 15:27 Order name: IV Saline Lock - Large Bore; Complete Time: 15:43 pm05/11 15:27 Order name: Labs collected and sent; Complete Time: 15:43 pm05/11 15:27 Order name: O2 Per Protocol; Complete Time: 15:43 pm05/11 15:27 Order name: O2 Sat Monitoring; Complete Time: 15:43 pm05/11 20:23 Order name: MRI; Complete Time: 20:27 EDMS Administered Medications: 18:35 Drug: Clindamycin 900 mg Route: IVPB; Infused Over: 30 mins; Site: left antecubital; tw2 19:08 Follow up: Response: No adverse reaction; IV Status: Completed infusion tl3 18:45 Drug: [place] 10 mg-325 mg 1 tabs Route: PO; tw2 19:08 Follow up: Response: No adverse reaction; Pain is decreased tl3 19:08 Drug: vancoMYCIN 1 grams Route: IVPB; Infused Over: 2 hrs; Site: left antecubital; tl3 21:23 Follow up: IV Status: Infusion continued upon admission tl3 19:50 Drug: NS 0.9% 1000 ml Route: IV; Rate: 100 ml/hr; Site: left forearm; tl3 21:23 Follow up: IV Status: Infusion continued upon admission tl3 Point of Care Testing: Blood Glucose: 20:13 Blood Glucose: 200 mg/dL; tl3 Ranges: Critical Glucose Levels:Adult <50 mg/dl or >400 mg/dl <40 mg/dl or >180 mg/dl Disposition: 05/11/18 18:26 Hospitalization ordered by Reed Cristobal for Inpatient Admission. Preliminary diagnosis is Abscess and cellulitis of right foot. - Bed requested for Telemetry/MedSurg (Inpatient). - Status is Inpatient Admission. tl3 - Condition is Stable. - Problem is new. - Symptoms have improved. UTI on Admission? No Addendum: 05/13/2018 20:37 Co-signature as Attending Physician, Shadi Spencer MD I agree with the assessment and k dr plan of care. Signatures: Dispatcher [employer] EDNJ Rola Mederos, RN RN Angel Luis Alonzo RN RN sg Rittger, Kevin, MD MD [facility] Skip Spencer, YARN FINISHER YARN FINISHER pm1 Hansa Hearn RN RN tw2 Josee Travis RN RN tl3 Maliha Pierson Corrections: (The following items were deleted from the chart) 05/11 16:24 15:28 Foot Left 3 View+RAD.RAD.BRZ ordered. [facility] EDNJ 18:35 18:26 Hospitalization Ordered by Reed Cristobal MD for Inpatient Admission. Preliminary eb diagnosis is Abscess and cellulitis of right foot. Bed requested for Telemetry/MedSurg (Inpatient). Status is Inpatient Admission. Condition is Stable. Problem is new. Symptoms have improved. UTI on Admission? No. pm1 19:26 18:35 05/11/2018 18:26 Hospitalization Ordered by Reed Cristobal MD for Inpatient kl Admission. Preliminary diagnosis is Abscess and cellulitis of right foot. Bed requested for Telemetry/MedSurg (Inpatient). Status is Inpatient Admission. Condition is Stable. Problem is new. Symptoms have improved. UTI on Admission? No. eb 21:57 19:26 05/11/2018 18:26 Hospitalization Ordered by Reed Cristobal MD for Inpatient tl3 Admission. Preliminary diagnosis is Abscess and cellulitis of right foot. Bed requested for Telemetry/MedSurg (Inpatient). Status is Inpatient Admission. Condition is Stable. Problem is new. Symptoms have improved. UTI on Admission? No. kl
--- NOTE | 2018-05-11 18:27 | ER ---
Nurse's Notes [facility] Name: June Hebert Age: 43 yrs Sex: Female : 1975 Arrival Date: 05/11/2018 Time: 14:59 Bed 23 Private MD: Guillermo Jordan Diagnosis: Abscess and cellulitis of right foot Presentation: 05/11 15:07 Presenting complaint: Patient states: reports wound to right foot, being treated in the wound center by , reports worsening pain and new blister formation noted to foot, reports feeling dizzy and having low BP's at home. Transition of care: patient was not received from another setting of care. Onset of symptoms was May 11, 2018. Risk Assessment: Do you want to hurt yourself or someone else? Patient reports no desire to harm self or others. Initial Sepsis Screen: Does the patient meet any 2 criteria? No. Patient's initial sepsis screen is negative. Does the patient have a suspected source of infection? Yes: Skin breakdown/wound. Care prior to arrival: None. 15:07 Method Of Arrival: Ambulatory 15:07 Acuity: JACOB 3 GLOBAL LEAD: 15:08 LMP 04/16/2018 Historical: - Allergies: 15:00 No Known Allergies; sg - Home Meds: 15:14 atorvastatin 10 mg Oral tab 1 tab once daily [Active]; fluoxetine 40 mg Oral cap 1 cap tw2 once daily [Active]; Invokana 100 mg Oral tab 1 tab once daily [Active]; metformin 1,000 mg Oral TG24 2 tabs once daily [Active]; Microgestin FE /20 (28) 1 mg-20 mcg (21)/75 mg (7) Oral tab 1 tab once daily [Active]; ramipril 10 mg Oral cap 1 cap once daily [Active]; Trulicity 1.5 mg/0.5 mL subcutaneous pnij 0.5 mL once wkly [Active]; - PMHx: 15:00 Diabetes - NIDDM; Hyperlipidemia; sg - PSHx: 15:00 Cholecystectomy; sg - Immunization history:: Adult Immunizations up to date. - Social history:: Smoking status: Patient/guardian denies using tobacco. - Ebola Screening: : Patient negative for fever greater than or equal to 101.5 degrees Fahrenheit, and additional compatible Ebola Virus Disease symptoms Patient denies exposure to infectious person Patient denies travel to an Ebola-affected area in the 21 days before illness onset No symptoms or risks identified at this time. Screenin:14 Abuse screen: Denies threats or abuse. Nutritional screening: No deficits noted. tw2 Tuberculosis screening: No symptoms or risk factors identified. Fall Risk None identified. Assessment: 15:05 General: Appears in no apparent distress. well groomed, Behavior is calm, cooperative, tw2 appropriate for age. Pain: Denies pain. Neuro: Level of Consciousness is awake, alert, obeys commands, Oriented to person, place, time, situation. Cardiovascular: Denies chest pain, shortness of breath, Heart tones S1 S2 Patient's skin is warm and dry. Respiratory: Airway is patent Respiratory effort is even, unlabored, Respiratory pattern is regular, symmetrical, Breath sounds are clear bilaterally. GI: No signs and/or symptoms were reported involving the gastrointestinal system. Abdomen is flat, Bowel sounds present X 4 quads. : No signs and/or symptoms were reported regarding the genitourinary system. EENT: No signs and/or symptoms were reported regarding the EENT system. Derm: Skin temperature is warm Wound noted ball of right foot and arch of right foot Other: redness and blisters noted. 15:47 Reassessment: Patient appears in no apparent distress at this time. No changes from tw2 previously documented assessment. Patient and/or family updated on plan of care and expected duration. Pain level reassessed. Patient is alert, oriented x 3, equal unlabored respirations, skin warm/dry/pink. 16:37 Reassessment: Patient appears in no apparent distress at this time. No changes from tw2 previously documented assessment. Patient and/or family updated on plan of care and expected duration. Pain level reassessed. Patient is alert, oriented x 3, equal unlabored respirations, skin warm/dry/pink. 17:05 Reassessment: Patient appears in no apparent distress at this time. No changes from tw2 previously documented assessment. Patient and/or family updated on plan of care and expected duration. Pain level reassessed. Patient is alert, oriented x 3, equal unlabored respirations, skin warm/dry/pink. 18:35 Reassessment: Patient appears in no apparent distress at this time. No changes from tw2 previously documented assessment. Patient and/or family updated on plan of care and expected duration. Pain level reassessed. Patient is alert, oriented x 3, equal unlabored respirations, skin warm/dry/pink. pt requesting something for pain, provider notified. 20:13 Reassessment: Patient and/or family updated on plan of care and expected duration. Pain tl3 level reassessed. Patient is alert, oriented x 3, equal unlabored respirations, skin warm/dry/pink. pt returned from Skip GARCIA at bedside discussing POC, pt reconnected to Vancomycin infusion. Vital Signs: 15:08 BP 125 / 70; Pulse 97; Resp 17; Pulse Ox 97% on R/A; Weight 84.37 kg; Height 5 ft. 3 hj in. (160.02 cm) (R); Pain 10/10; 15:46 BP 119 / 64; Pulse 89; Temp 98.7(O); Pulse Ox 98% on R/A; tw2 16:10 BP 119 / 65; Pulse 88; Resp 16; Pulse Ox 99% on R/A; mt 17:01 BP 125 / 69; Pulse 88; Resp 17; Pulse Ox 100% on R/A; tw2 17:39 BP 119 / 69; Pulse 104; Resp 16; Pulse Ox 99% on R/A; mt 18:25 BP 113 / 66; Pulse 100; Resp 17; Pulse Ox 99% on R/A; mt 20:59 BP 118 / 85; Pulse 82; Resp 16; Pulse Ox 100% ; tl3 15:08 Body Mass Index 32.95 (84.37 kg, 160.02 cm) ED Course: 14:59 Patient arrived in ED. as 14:59 Guillermo Jordan MD is Private Physician. as 15:01 Arm band placed on. sg 15:02 Bed in low position. Adult w/ patient. Pulse ox on. NIBP on. tw2 15:03 Hansa Hearn RN is Primary Nurse. tw2 15:05 Skip Spencer NP is PHCP. pm1 15:05 Shadi Spencer MD is Attending Physician. pm1 15:08 Triage completed. hj 15:30 Inserted saline lock: 22 gauge in left antecubital area, using aseptic technique. Blood mt collected. 16:20 X-ray completed. Portable x-ray completed in exam room. Patient tolerated procedure kw well. 16:25 Foot Right 3 View XRAY In Process Unspecified. EDMS 18:26 Reed Cristobal MD is Hospitalizing Provider. pm1 18:51 Report given to TITO Tripp. tw2 19:39 Patient moved to [facility] via wheelchair. tl3 20:30 No provider procedures requiring assistance completed. tl3 Administered Medications: 18:35 Drug: Clindamycin 900 mg Route: IVPB; Infused Over: 30 mins; Site: left antecubital; tw2 19:08 Follow up: Response: No adverse reaction; IV Status: Completed infusion tl3 18:45 Drug: [place] 10 mg-325 mg 1 tabs Route: PO; tw2 19:08 Follow up: Response: No adverse reaction; Pain is decreased tl3 19:08 Drug: vancoMYCIN 1 grams Route: IVPB; Infused Over: 2 hrs; Site: left antecubital; tl3 21:23 Follow up: IV Status: Infusion continued upon admission tl3 19:50 Drug: NS 0.9% 1000 ml Route: IV; Rate: 100 ml/hr; Site: left forearm; tl3 21:23 Follow up: IV Status: Infusion continued upon admission tl3 Point of Care Testing: Blood Glucose: 20:13 Blood Glucose: 200 mg/dL; tl3 Ranges: Outcome: 18:26 Decision to Hospitalize by Provider. pm1 20:30 Admitted to [facility] accompanied by [facility], via wheelchair, with chart, Report called to tl3 Brinda Newton RN 21:57 Patient left the ED. tl3 Signatures: Dispatcher [employer] EDNM Angel Luis Wilson RN Jennifer Carver Kimberlee kw Joaquin, Henry, RN RN hj Marinas, Patrick, MALINA SOFTWARE APPLICATIONS ENGINEER pm1 Hansa Hearn RN RN tw2 Elizabeth Hastings mt, Tammy, TITO RN tl3
[2018-05-11] MEDS ORDERED: VANCOMYCIN 1 GM/250 ML BAG ONE (18:34)
[2018-05-11] MEDS ORDERED: CLINDAMYCIN 900MG/D5W 900 MG/50 ML BAG IV ONE (18:34)
[2018-05-11] MEDS ORDERED: HYDROCODONE/APAP 10/325 TAB ONE (18:44)
--- NOTE | 2018-05-11 20:22 | RAD REPORT ---
EXAM DESCRIPTION: MRI - Foot Right Wo Cont - 05/11/2018 8:03 pm CLINICAL HISTORY: Right foot pain and swelling COMPARISON: X-ray May 11, 2018 TECHNIQUE: Axial, sagittal, and coronal magnetic images of the right foot was obtained FINDINGS: Abnormal signal is present within the fifth metatarsal head and distal aspect of the fifth proximal phalanx compatible with osteomyelitis. Abnormal signal also involves the second proximal phalanx A soft tissue ulceration involves the lateral forefoot. Diffuse edema is present within subcutaneous tissues IMPRESSION: Osteomyelitis involving the fifth metatarsal head and fifth proximal phalanx Abnormal signal within the second proximal phalanx may represent additional osteomyelitis
[2018-05-11] MEDS ORDERED: NA CHLORIDE 0.9% 1,000 ML ONE (20:36)
[2018-05-11 21:34] VITALS: BMI 34.3
[2018-05-11] MEDS ORDERED: D50W 25 GM/50 ML SYRINGE IV PRN (21:50)
[2018-05-11] MEDS ORDERED: ONDANSETRON 4 MG/2 ML VIAL IV PRN (21:50)
[2018-05-11] MEDS ORDERED: GLUCAGON 1 MG/VIAL IM PRN (21:50)
[2018-05-11] MEDS ORDERED: ACETAMINOPHEN 500 MG TAB PO PRN (21:50)
--- NOTE | 2018-05-11 21:50 | P.HP ---
Certification for Inpatient Patient admitted to: Inpatient With expected LOS: >2 Midnights Practitioner: I am a practitioner with admitting privileges, knowledge of patient current condition, hospital course, and medical plan of care. Services: Services provided to patient in accordance with Admission requirements found in Title 42 Section 412.3 of the Code of Federal Regulations Patient History Date of Service: 05/11/18 Reason for admission: osteromyelitis History of Present Illness: Ms major is a 43 years old woman with history of IDDM, dyslipidemia, who was admitted to the hospital last week due to DKA. The patient has also a chronic diabetic ulcer which is followed up by Dr Velarde. She was discharged home in stable condition on 05/07/18. The patient sow Dr Velarde yesterday, and her foot was ok. However, this morning when she noted some blisters in the plantar area of her right foot. Along the day, the blisters got bigger and her foot was swollen. Also she noticed some purulent discharged from her chronic wound close to the blisters. She denied fever or chills. XR foot showed possible signs of osteomyelitis. Subsequent MRI of right foot was consistent with Osteomyelitis involving the fifth metatarsal head and fifth proximal phalanx, also possible second proximal phalanx. The patient was afebrile, WBC count 11.1K, elevated C- RP and ESR, procalcitonin and lactate normal. Allergies No Known Allergies Allergy (Verified 11/30/17 10:33) Home medications list reviewed: Yes Home Medications: Atorvastatin Calcium [Lipitor*] 10 mg PO DAILY 12/06/17 Canagliflozin [Invokana] 100 mg PO DAILY 12/06/17 Dulaglutide [Trulicity] 1.5 mg SQ EVERY 7TH DAY 12/06/17 Fluoxetine HCl [Prozac] 40 mg PO DAILY 12/06/17 Metformin HCl [Glucophage] 1,000 mg PO BID 12/06/17 Norethindrone AC-Eth Estradiol [Microgestin 21 1-20 Tablet] 1 each PO DAILY 05/16 Ramipril [Altace] 10 mg PO DAILY 12/06/17 Ciprofloxacin HCl [Cipro 500 MG Tablet] 500 mg PO DAILY #5 tab 05/07/18 Collagenase [Santyl Ointment*] 1 appl TOP DAILY #1 tube 05/07/18 - Past Medical/Surgical History Diabetic: Yes -: NIDDM -: hyperlipidemia -: cholecystectomy - Family History Father -: Heart disease, Diabetes Mother -: Heart disease - Social History Alcohol use: Yes CD- Drugs: No Caffeine use: Yes Place of Residence: Home Review of Systems 10-point ROS is otherwise unremarkable Physical Examination - Vital Signs Temperature: 97.1 F Blood Pressure: 110/66 Pulse: 89 Respirations: 20 Pulse Ox (%): 100 - Physical Exam General: Alert, In no apparent distress HEENT: Atraumatic, PERRLA, Mucous membr. moist/pink, EOMI, Sclerae nonicteric Neck: Supple, 2+ carotid pulse no bruit, No LAD, Without JVD or thyroid abnormality Respiratory: Clear to auscultation bilaterally, Normal air movement Cardiovascular: Regular rate/rhythm, Normal S1 S2 Gastrointestinal: Normal bowel sounds, No tenderness Musculoskeletal: No tenderness Integumentary: No rashes, Diabetic ulcer (right foot plantar area, she has a chronic ulcerated lesion and new callous wound with obvious pus collection underneath) Neurological: Normal gait, Normal speech, Normal strength at 5/5 x4 extr, Normal tone, Normal affect Lymphatics: No axilla or inguinal lymphadenopathy - Studies Laboratory Data (last 24 hrs) 05/11/18 15:35: PT 12.2, INR 1.03, APTT 27.7 05/11/18 15:35: WBC 11.1 H, Hgb 11.0 L, Hct 32.8 L, Plt Count 445 H D 05/11/18 15:35: Sodium 137, Potassium 4.2, BUN 28 H D, Creatinine 1.10, Glucose 209 H, Total Bilirubin 0.2, AST 17, ALT 14, Alkaline Phosphatase 96, Lipase 130 Assessment and Plan - Problems (Diagnosis) (1) Osteomyelitis Current Visit: Yes Status: Acute Qualifiers: Osteomyelitis type: other acute Osteomyelitis location: foot Laterality: right Qualified Code(s): M86.171 - Other acute osteomyelitis, right ankle and foot (2) Diabetes Current Visit: No Status: Acute Qualifiers: Diabetes mellitus type: type 2 Diabetes mellitus adjunct faculty for medical terminology insulin use: with adjunct faculty for medical terminology use Diabetes mellitus complication status: with skin complications Diabetes mellitus complication detail: with foot ulcer Qualified Code(s): E11.621 - Type 2 diabetes mellitus with foot ulcer; L97.509 - Non-pressure chronic ulcer of other part of unspecified foot with unspecified severity; Z79.4 - technician terminal and repeater (current) use of insulin (3) Diabetic ulcer of right foot Current Visit: No Status: Chronic Qualifiers: Diabetic foot ulcer location: midfoot Diabetes mellitus type: type 2 Non- pressure ulcer stage: with muscle involvement without evidence of necrosis Qualified Code(s): E11.621 - Type 2 diabetes mellitus with foot ulcer; L97.415 - Non-pressure chronic ulcer of right heel and midfoot with muscle involvement without evidence of necrosis (4) Hyperlipidemia Onset Date: 05/07/18 Current Visit: No Status: Chronic Qualifiers: Hyperlipidemia type: mixed hyperlipidemia Qualified Code(s): E78.2 - Mixed hyperlipidemia - Plan The patient will be admitted to the hospital due to right foot osteomyelitis. Dr Velarde has recommended to start Vancomycin and Clindamicyn, I will also add an antipseudomonal antibiotic. Patient is hemodynamically stable. wound cultures and blood cultures are in process. - Advance Directives Does patient have a Living Will: No Does patient have a Durable POA for Healthcare: No - Code Status/Comfort Care Code Status Assessed: Yes Code Status: Full Code
[2018-05-11] MEDS: Levofloxacin 750mg IV 750 MG/150 ML BAG IV SCH (22:43)
[2018-05-11] MEDS: INSULIN -REGULAR HUMAN 50 UNIT/0.5 ML ML SQ SCH (22:43)
[2018-05-11] MEDS: NA CHLORIDE 0.9% 1,000 ML IV SCH (22:44)
[2018-05-12] MEDS: CLINDAMYCIN PHOSPHATE 600 MG in NA CHLORIDE 0.9% 50 ML IV SCH ×3 (01:00→16:43)
[2018-05-12] MEDS ORDERED: CLINDAMYCIN 600MG/D5W 600 MG/50 ML BAG IV ONE (01:17)
[2018-05-12] MEDS: MORPHINE 4 MG/ML SYR IV PRN ×3 (01:29→16:42)
[2018-05-12] MEDS ORDERED: VANCOMYCIN 1 GM in NA CHLORIDE 0.9% 500 ML IVPB SCH (06:00)
[2018-05-12] MEDS: NA CHLORIDE 0.9% 1,000 ML IV SCH ×2 (06:10→19:00)
[2018-05-12] MEDS: INSULIN -REGULAR HUMAN 50 UNIT/0.5 ML ML SQ SCH ×4 (07:30→21:15)
[2018-05-12] MEDS: VANCOMYCIN 1.5 GM in NA CHLORIDE 0.9% 500 ML IVPB SCH (08:58)
[2018-05-12 09:40] LABS: Urine Appearance CLEAR; Urine Bilirubin NEGATIVE (NEG); Urine Blood NEGATIVE (NEG); Urine Color YELLOW; Urine Glucose 2+ (NEG); Urine Microscopic Reflex ORDER UMIC; Urine Protein TRACE (NEG); Urine Urobilinogen 0.2 mg/dL (0.2-1.0)
[2018-05-12] MEDS ORDERED: NA CHLORIDE 0.9% 1,000 ML ONE (09:56)
[2018-05-12 10:02] LABS: Urine Bacteria <20 /HPF (<20); Urine RBC <5 /HPF (NONE SEEN)
[2018-05-12 10:03] LABS: Urine Culture Reflex Order NOT NEEDED
[2018-05-12] MEDS ORDERED: BUPIVACAINE 0.5% PF 10 ML VIAL ONE (11:23)
[2018-05-12] MEDS ORDERED: PROPOFOL 200 MG/20 ML VIAL IV ONE (11:26)
[2018-05-12] MEDS ORDERED: FENTANYL CITR 100 MCG/2 ML ONE (11:27)
[2018-05-12] MEDS ORDERED: LIDOCAINE 2% MPF 5 ML VIAL ONE (11:27)
[2018-05-12] MEDS ORDERED: DEXAMETHASONE 10 MG/ML VIAL ONE (11:40)
[2018-05-12] MEDS ORDERED: ONDANSETRON HCL 40 MG/20 ML VIAL ONE (11:41)
[2018-05-12] MEDS ORDERED: KETOROLAC 30 MG/ML INJ ONE (11:41)
--- NOTE | 2018-05-12 11:49 | P.OP ---
Preoperative diagnosis: Abscess and Cellulitis and Osteomyelitis Right Foot Postoperative diagnosis: same Primary procedure: I and D and Debridement Right Foot Abscess Anesthesia: gen Estimated blood loss: min Specimen: c & s Findings: as above Complications: None Transferred to: Recovery Room Condition: Good
--- NOTE | 2018-05-12 13:15 | PREOPCON ---
Date of Consultation: 05/11/2018 Reason For Consultation: Right foot infection, osteomyelitis. History Of Present Illness: The patient is a 43-year-old female, well known to me from the [facility], who was admitted yesterday with a worsening of the cellulitis that she had and started a fter she went [place], and then she noticed increase d redness and swelling. She was admitted last week with DKA, was treated, and was sent home on oral antibiotics. She saw me on , and erythema and edema was improving. There was no blistering. There was no other wound besides the chronic ulcer that she has in the plantar aspect of her right foot. However yesterday, she called me and said that she was getting blister and some pus drainage f rom the lateral aspect of the right foot as well as a blister developing on the mid plantar aspect. I advise her to go to the ER and she was worked up and was admitted with cellulitis and osteomyelitis after the MRI was done and I was consulted. She is awake, alert, complaining of some discomfort. N o fever or chills. There is discharge and cultures were already done in the emergency room. Review of Systems: Otherwise unremarkable. Past Medical History: Significant for diabetes and dyslipidemia. Past Surgical History: Cholecystectomy. Allergies: NONE. Social History: She does drink alcohol. Denies smoking. Family History: Significant for diabetes and heart disease. Physical Examination: Vital Signs: Stable. She is afebrile. General: She is awake, alert, and oriented x3. Head and neck: Cranial nerves 2 through 12 grossly within normal limits. No neck masses. No JVD. Throat clear. Neck is supple. Chest: Clear. Heart: S1 and S2. Abdomen: Soft. Extremities: Neurovascularly intact. She has palpable dorsalis pedis and posterior tibial pulses. On the right foot plantar aspect and on the lateral aspect, there is a small wound. It appears there is some tracking from the chronic ulcer that is in the top of the foot on the plantar aspect below t he third toe, and there appears to be no further drainage in this area. She does have a large bliste r on the mid foot, which was debrided at the bedside and there appears to be more pus underneath it a nd it needs debridement. There is erythema, warmth, and edema associated with it. There is purulent discharge coming from the chronic ulcer when press on the blister site. Laboratory Data: White count was 11.1 and platelets are 445. Sedimentation rate is 138, INR is 1.03 , glucose on admission was 209 and lactic acid was 1, procalcitonin was 0.07, C-reactive was 223. MR I of the right foot revealed osteomyelitis involving the 5th metatarsal head and 5th proximal phalanx , abnormal signal within the second proximal phalanx may represent additional osteomyelitis. Assessment: Diabetic foot infection on the right side with osteomyelitis. Recommendations: Continue IV antibiotics as ordered. Take the patient to the OR for incision, drain age, and debridement of that the plantar wound. The patient understands the risks, benefits, and alt ernatives and agrees to procedure. She will need 6 weeks IV antibiotics and she will need a PICC nelda CRONIN/GISSELLE Voice ID: [id number] Report ID: [id number]
--- NOTE | 2018-05-12 13:33 | OP ---
Date of Procedure: 05/12/2018 Surgeon: Josiah Velarde MD Preoperative Diagnoses: Abscess cellulitis and osteomyelitis, right foot. Postoperative Diagnoses: Abscess cellulitis and osteomyelitis, right foot. Procedure: Incision, drainage, and debridement of right foot abscess. Estimated Blood Loss: Minimal. Specimen: Pus and necrotic tissue. Findings: As above. Anesthesia: General. Complications: None. Disposition: The patient tolerated the procedure in stable condition and taken to Recovery in good g eneral condition. Operative Note: The patient was brought to the OR and placed in supine position. General anesthesia was begun. The patient was prepped and draped in usual sterile fashion. Marcaine 0.5% was infiltra kendall locally. Then, the area with the fluctuance, redness and pinholes appear to be insect bites pres ent on the plantar aspect of the foot, was lanced with approximately a 2 cm incision. Subcutaneous t issue divided. Pus evacuated. This tunnel likely to the ulcer on the base of the third toe, and the tunnel was cleaned and debrided with a curette. Wound irrigated. Bleeding controlled with cautery. Wet-to-dry normal saline dressing change applied. The patient tolerated the procedure in stable condition and taken to the Recovery in good general condition. ROSEANNE/GISSELLE Voice ID: [id number] Report ID: [id number]
[2018-05-12] MEDS: METFORMIN HCL 500 MG TAB PO SCH (16:43)
--- NOTE | 2018-05-12 17:24 | PN ---
Subjective: Currently the patient is lying in bed. She looks comfortable. She was seen by General Surgery. No chest pain. No abdominal pain. No fever. No chills overnight. Objective: Vital Signs: Temperature is 97.6, respiratory rate 18, pulse 78, blood pressure 119/68. General: She is currently lying in bed, alert and oriented x3. Does not look in any distress. HEENT: Atraumatic, normocephalic. PERRLA. Oral mucosa is moist. Neck: Supple. No JVP. No carotid bruits. Chest: Clear to auscultation. Good air entry. Heart: Regular rate and rhythm S1, S2 normal. No gallop or murmur. Abdomen: Soft, nontender. No masses. No hepatosplenomegaly. Positive bowel sounds. Skin: No rashes. Extremities: No clubbing, cyanosis, or edema. Right foot plantar area with dressing. Laboratory Data: Today CBC within normal except hemoglobin 11, platelets 445, white blood cells of 1 1.1. Chemistry showed within normal except for glucose 209. GFR of 54. C-reactive protein of 223. Cultures of the blood in the wound still pending. Urine cultures are pending negative. Assessment And Plan: 1.Osteomyelitis of the right foot. She reported debridement done in the OR. We will continue the p atient on IV antibiotic with vancomycin, gentamicin, and Levaquin. Cultures were all negative. The patient may need to continue antibiotics for 6 weeks if the patient only have debridement and no rese ction of the bone with osteomyelitis. 2.Pain control. 3.Diabetes. We will resume patient on metformin 1000 mg twice a day. 4.Hyperlipidemia, resume 10 mg of atorvastatin. 5.Depression. We will resume patient on fluoxetine. 6.The patient will be on insulin sliding-scale. Advised to ambulate. If she cannot, we will start her on DVT prophylaxis for Lovenox. 7.Symptomatic treatment for pain and nausea. CLAUDE/GISSELLE Voice ID: [id number] Report ID: [id number]
[2018-05-12] MEDS: ATORVASTATIN 10 MG TAB PO SCH (21:14)
[2018-05-12] MEDS: ZOLPIDEM TARTRATE 5 MG TABLET PO PRN (21:15)
[2018-05-12] MEDS: Levofloxacin 750mg IV 750 MG/150 ML BAG IV SCH (22:46)
[2018-05-13] MEDS: MORPHINE 4 MG/ML SYR IV PRN ×4 (00:14→22:05)
[2018-05-13] MEDS: CLINDAMYCIN PHOSPHATE 600 MG in NA CHLORIDE 0.9% 50 ML IV SCH ×4 (00:14→23:57)
[2018-05-13] MEDS: NA CHLORIDE 0.9% 1,000 ML IV SCH ×3 (03:49→23:57)
[2018-05-13] MEDS: FLUOXETINE 20 MG CAP PO SCH (08:12)
[2018-05-13] MEDS: METFORMIN HCL 500 MG TAB PO SCH ×2 (08:13→16:20)
[2018-05-13] MEDS: INSULIN -REGULAR HUMAN 50 UNIT/0.5 ML ML SQ SCH ×4 (08:13→21:00)
[2018-05-13] MEDS: VANCOMYCIN 1.5 GM in NA CHLORIDE 0.9% 500 ML IVPB SCH (08:14)
--- NOTE | 2018-05-13 14:58 | PN ---
Date of Progress Note: 05/13/2018 Subjective: The patient is awake and alert. No complaint. Objective: Vital Signs: Stable. Afebrile. Cultures reviewed is growing Staph aureus from the ER. Cultures done on Monday. Sensitive to vancom ycin and clindamycin. The dressing is clean, dry, intact. Assessment: Status post I and D, right foot abscess. Recommendations: Continue IV antibiotics. We will await PICC line. Discharge planning for 6 weeks IV antibiotics. Probably vancomycin will suffice and wound care as ordered. [facility] upon discharge. /MODL Voice ID: [id number] Report ID: [id number]
--- NOTE | 2018-05-13 16:49 | PN ---
Subjective: Currently she is doing well. She is lying in bed. She feels comfortable. No chest hipolito n. No abdominal pain. Review of Systems: Otherwise as below. Physical Examination: Vital Signs: Today blood pressure is 134/67, respiratory rate 18, pulse 85, temperature 97, saturati ng 98% on room air. She is fully alert and oriented x3. Does not look in any distress. HEENT: Atraumatic, normocephalic. PERRLA. Oral mucosa is moist. Neck: Supple. No JVD. No carotid bruits. Abdomen: Soft, nontender. No masses. No hepatosplenomegaly. Positive bowel sounds. Extremities: No clubbing, cyanosis, or edema. Right foot in dressing. Neuro: Exam grossly intact. Laboratory Data: Today showed pending for CBC and CMP. Wound culture was positive for Staphylococcus aureus. Sensitivity was positive for vancomycin and cl indamycin. Assessment And Plan: 1.Osteomyelitis of the right foot. Status post debridement in the OR on Monday. Continue IV anti biotic with vancomycin and clindamycin. I will discontinue Levaquin. The patient has Staphylococcus aureus, which is sensitive to both clindamycin and vancomycin and Dr. Velarde would like her to contin ue on that for total of 6 weeks. We will need home health and PICC line upon discharge tomorrow to c ontinue IV antibiotic and she will follow up with Dr. Velarde in the office. 2.Pain is well controlled. 3.Diabetes not well controlled. She is on metformin 1000 mg twice a day. We will continue with be t and insulin sliding scale. We will check hemoglobin A1c. Last hemoglobin A1c of the patient was 6 .8. The patient advised she will need tighter dietary control. 4.Hyperlipidemia. Continue atorvastatin 10 mg. 5.Depression, on fluoxetine. 6.Discharge plan will be in a.m. after PICC line placement and home health arranged for IV antibioti c. CLAUDE/GISSELLE Voice ID: [id number] Report ID: [id number]
--- NOTE | 2018-05-13 21:59 | RAD REPORT ---
EXAM DESCRIPTION: RAD - Chest Single View - 05/13/2018 9:54 pm CLINICAL HISTORY: Device placement PICC line placement COMPARISON: none FINDINGS: A PICC line has been inserted with its tip in the superior vena cava. The lungs appear clear of acute infiltrate. The heart is normal size. IMPRESSION: PICC line with its tip in the mid superior vena cava
[2018-05-13] MEDS: ZOLPIDEM TARTRATE 5 MG TABLET PO PRN (22:06)
[2018-05-13] MEDS: ATORVASTATIN 10 MG TAB PO SCH (22:06)
[2018-05-13 22:40] VITALS: O2SAT 99
[2018-05-14 04:21] LABS: Absolute Lymphocytes (CBC) 3.7 K/uL (0.7-4.9); Absolute Monocytes 0.8 K/uL (0.1-1.3); Absolute Neutrophil 3.2 K/uL (1.8-8.0); Basophils % 0.7 % (0-1.3); Eosinophils % 1.3 % (0-4.4); Lymphocytes % 46.9 % (15.3-44.8); MCH 28.8 pg (27.0-35.0); MCV 85.3 fL (80-100); MPV 7.2 fL (7.6-11.3); Monocytes % 10.5 % (3.3-12.3); RBC Red Blood Cell Count 3.17 M/uL (3.86-4.86)
[2018-05-14 04:38] LABS: ALT/SGPT 11 U/L (12-78); AST/SGOT 17 U/L (15-37); Albumin 1.7 g/dL (3.4-5.0); Alkaline Phosphatase 68 U/L (45-117); BUN Blood Urea Nitrogen 17 mg/dL (7-18); Bicarbonate 23 mmol/L (21-32); Bilirubin Total 0.2 mg/dL (0.2-1.0); Glucose Level 139 mg/dL (74-106); Potassium 4.1 mmol/L (3.5-5.1); Protein, Total 6.3 g/dL (6.4-8.2); Sodium Level 143 mmol/L (136-145)
[2018-05-14] MEDS: INSULIN -REGULAR HUMAN 50 UNIT/0.5 ML ML SQ SCH ×3 (07:30→16:30)
[2018-05-14] MEDS: CLINDAMYCIN PHOSPHATE 600 MG in NA CHLORIDE 0.9% 50 ML IV SCH ×2 (08:42→17:27)
[2018-05-14] MEDS: MORPHINE 4 MG/ML SYR IV PRN ×2 (08:43→14:14)
[2018-05-14] MEDS: METFORMIN HCL 500 MG TAB PO SCH ×2 (08:43→17:27)
[2018-05-14] MEDS: FLUOXETINE 20 MG CAP PO SCH (08:43)
[2018-05-14] MEDS: VANCOMYCIN 1.5 GM in NA CHLORIDE 0.9% 500 ML IVPB SCH (10:36)
[2018-05-14] MEDS: NA CHLORIDE 0.9% 1,000 ML IV SCH (10:43)
--- NOTE | 2018-05-14 15:07 | PN ---
Date of Progress Note: 05/14/2018 Subjective: The patient is awake, alert. No complaint. Objective: Vital signs: Stable, afebrile. Extremities: Dressing is clean dry and intact. Swelling is down. Redness is better Cultures from both the OR and the ER revealed the same Staphylococcus aureus sensitive to vancomycin. Assessment: Status post incision drainage and debridement, right foot abscess with osteomyelitis. Recommendations: PICC line is in. The patient will have home health for wound care and discharge pl anning for home IV antibiotics. Once that is arranged, the patient can be discharged home and follow up with [facility]. /MODL Voice ID: [id number] Report ID: [id number]
[2018-05-14 16:24] VITALS: BP 151/73; TEMP 97.8
[2018-05-15] MEDS ORDERED: VANCOMYCIN 1.5 GM in NA CHLORIDE 0.9% 500 ML IVPB SCH (03:00)
--- NOTE | 2018-05-15 06:39 | DS ---
Date of Discharge: 05/14/2018 Consultants: Dr. Velarde with General Surgery. Procedures: On 05/12/2018, incision and drainage, debridement of right foot abscess. Admitting Diagnoses: 1.Osteomyelitis, right foot. 2.Diabetes mellitus type 2 with long-term use of insulin with a foot ulcer. 3.Right foot diabetic ulcer with abscess. 4.Hyperlipidemia. 5.Obesity. Discharge Diagnoses: 1.Osteomyelitis of the right foot. Wound cultures growing methicillin-sensitive Staphylococcus jr us. 2.Diabetes mellitus type 2, insulin requiring with hemoglobin A1c of 6.8 with foot ulcer. 3.Right foot ulcer, status post incision and drainage. 4.Hyperlipidemia, on statin. 5.Major depressive disorder, on selective serotonin reuptake inhibitor. 6.Obesity, BMI 34. Hospital Course: The patient is a 43-year-old female with past medical history of diabetes, dyslipid emia, recently had admission to the hospital for DKA, was in the ICU, who comes in with an abscess of her right foot with some purulent discharge. Imaging study showed osteomyelitis of the fifth metata rsal head and fifth proximal phalanx along with the second proximal phalanx showing signs of osteomye litis. The patient was started on IV antibiotics. Cultures were obtained. Blood cultures remained negative. Wound cultures grow out MSSA. The patient's white count normalized. She was afebrile. H er hemoglobin A1c was checked which was 6.8%. She was counseled on her diabetes. The patient was ta michelle for I and D by Dr. Velarde on 05/02/2018. She did well postoperatively. The patient had a PICC [facility] placed for long-term IV antibiotics and was then cleared for discharge with home health care for l iris-term IV antibiotics for 6 weeks. Diet: Diabetic. Medications: As per medication reconciliation list. Finish up IV vancomycin for 6 weeks. Followup: Follow up with primary care physician in 2-3 days. Follow up with surgeon, Dr. Velarde in 7 to 10 days for wound check. Weekly CBC, CMP, ESR, and CRP. Adjust vancomycin dose really. Return to ER for worsening condition. Physical Examination: General: Awake, alert, oriented, no acute distress. Obese female. CV: S1, S2. No murmurs. Respiratory: Moving air well bilaterally. No wheezing. Gastrointestinal: Abdomen is soft, nontender, nondistended. Positive bowel sounds. Extremities: No clubbing, cyanosis. Mild edema in the right foot. Skin: Right foot incision site clean, dry, and intact bandage. No drainage. Neurologic: Nonfocal. Total time spent discharging the patient was 39 minutes. NOAH Voice ID: [id number] Report ID: [id number]
[2018-05-15] MEDS ORDERED: NORETHINDRONE AC ETH ESTRADIOL PO SCH (09:00)
== END 2018-05-14 19:55 | disposition home health service (06) | DRG 623 ==
LOC: ER 14:56 → ERHOLD 18:15 → 4TH 20:52
PROVIDERS: ADMIT Internal Medicine; ATTEND Family Medicine
PROC: 0JBQ0ZZ Excision of Right Foot Subcutaneous Tissue and Fascia, Open Approach (ICD-10-PCS; principal; 2018-05-12 11:00)
PROC: 02HV33Z Insertion of Infusion Device into Superior Vena Cava, Percutaneous Approach (ICD-10-PCS; 2018-05-13)
DX: E11.621 Type 2 diabetes mellitus with foot ulcer (principal); L02.611 Cutaneous abscess of right foot; L03.115 Cellulitis of right lower limb; M86.171 Other acute osteomyelitis, right ankle and foot; E11.69 Type 2 diabetes mellitus with other specified complication; L97.519 Non-pressure chronic ulcer of other part of right foot with unspecified severity; B95.61 Methicillin susceptible Staphylococcus aureus infection as the cause of diseases classified elsewhere; E78.5 Hyperlipidemia, unspecified; F32.9 Major depressive disorder, single episode, unspecified; E66.9 Obesity, unspecified; Z68.34 Body mass index [BMI] 34.0-34.9, adult; E11.65 Type 2 diabetes mellitus with hyperglycemia; Z79.84 Long term (current) use of oral hypoglycemic drugs
CPT/HCPCS: 36415; 71045; 80048; 80053; 80076; 80202; 81003; 81015; 81025; 82962; 83036; 83605; 83690; 84145; 85025; 85610; 85652; 85730; 86140; 87040; 87070; 87077; 87086; 87088; 87176; 87186; 87205; 96365; 96366; 96367; 99285; J1100; J2405; J3010; J3370; J7030; S0077